=== PATIENT | male | born 1945 | race Caucasian/White ===

== ENCOUNTER → 2017-11-06 14:51 | Outpatient (CLI) | payer BC, SELFPAY ==
[2017-11-06 15:15] LABS: HCT 38.1 % (40.0-50.0); HGB 12.9 g/dL (13.5-17.5); Mean Corp. HGB Concentration 33.9 g/dL (32.0-36.0); Mean Corpuscular Hemoglobin 31.2 pg (27.0-33.0); Mean Corpuscular Volume 92.3 fL (80-95); Mean Platelet Volume 9.1 fL (8.0-11.0); Platelet Count 223 x1000/uL (130-400); RBC 4.13 m/cumm (4.50-6.00); RBC Distribution Width 14.8 % (11.8-14.1); White Blood Cell Count 3.76 k/cumm (4.4-10.8)
== END ==
PROVIDERS: PCP Nurse Practitioner Family; Visit Provider Nurse Practitioner Family
DX: Z86.2 Personal history of diseases of the blood and blood-forming organs and certain disorders involving the immune mechanism (principal)
CPT/HCPCS: 36415; 85027

== ENCOUNTER 2018-04-25 07:53 | Outpatient (CLI) | payer BC, SELFPAY ==
[2018-04-25 08:20] LABS: Absolute Basophil Count 0.02 k/cumm (0.0-0.2); Absolute Eosinophil Count 0.15 k/cumm (0.0-0.7); Absolute Lymphocyte Count 0.93 k/cumm (1.2-3.4); Absolute Monocyte Count 0.32 k/cumm (0.11-0.7); Absolute Neutrophil Count 2.23 k/cumm (1.2-6.7); Basophils % 0.5; Eosinophils % 4.1; HCT 41.6 % (40.0-50.0); HGB 14.3 g/dL (13.5-17.5); Lymphocytes % 25.5; Mean Corp. HGB Concentration 34.4 g/dL (32.0-36.0); Mean Corpuscular Hemoglobin 31.5 pg (27.0-33.0); Mean Corpuscular Volume 91.6 fL (80-95); Mean Platelet Volume 9.4 fL (8.0-11.0); Monocytes % 8.8; Neutrophils % 61.1; Platelet Count 249 x1000/uL (130-400); RBC 4.54 m/cumm (4.50-6.00); RBC Distribution Width 13.9 % (11.8-14.1); White Blood Cell Count 3.65 k/cumm (4.4-10.8)
[2018-04-25 08:25] LABS: INR 3.3 (0.9-1.1); Prothrombin Time 33.2 sec (9.3-11.0)
[2018-04-25 10:24] LABS: Iron 83 ug/dL (50-175); Total Iron Binding Capacity 322 ug/dL (250-450); Transferrin Sat 26 % (20-55)
[2018-04-25 11:05] LABS: ALT 34 U/L (12-78); AST 30 U/L (15-37); Albumin 3.9 g/dL (3.4-5.0); Alkaline Phosphatase 74 U/L (46-116); Anion Gap 7.7 mmol/L (3-11); BUN 18 mg/dL (7-18); Bilirubin, Total 0.8 mg/dL (0.2-1.0); CO2 30.3 mmol/L (21.0-32.0); CREATININE 1.18 mg/dL (0.70-1.30); Calcium 9.1 mg/dL (8.5-10.1); Chloride 103 mmol/L (98-107); Cholesterol 193 mg/dL (50-200); Ferritin 100 ng/mL (8-388); Folate 19.7 ng/mL (8.6-20.0); Glucose 87 mg/dL (70-100); HDL Cholesterol 88 mg/dL (40-60); LDL CHOLESTEROL 93 mg/dL (<100); Potassium 4.6 mmol/L (3.5-5.1); Sodium 141 mmol/L (136-145); Total Protein 7.1 g/dL (6.4-8.2); Triglyceride 43 mg/dL (30-150); Vitamin B12 841 pg/mL (193-986)
[2018-04-28 12:08] LABS: Hepatitis C Ab w Rflx HCV PCR Negative (NEGAT)
== END 2018-04-25 08:13 ==
PROVIDERS: PCP Nurse Practitioner Family; Visit Provider Nurse Practitioner Family
DX: D50.0 Iron deficiency anemia secondary to blood loss (chronic) (principal); E78.5 Hyperlipidemia, unspecified; Z13.1 Encounter for screening for diabetes mellitus; Z11.59 Encounter for screening for other viral diseases; Z95.2 Presence of prosthetic heart valve; Z79.01 Long term (current) use of anticoagulants
CPT/HCPCS: 36415; 80053; 80061; 83721; 86803; 82607; 82728; 82746; 83540; 83550; 85025; 85610

== ENCOUNTER 2019-04-17 22:12 | Emergency (ER) | payer BC, SELFPAY ==
[2019-04-17 22:14] VITALS: BP 150/80; PULSE 60; RESP 16; TEMP 36.4; O2SAT 98
[2019-04-17 22:18] VITALS: RESP 16
[2019-04-17] MEDS: Tranexamic Acid 1,000 MG/10 ML VIAL 1000 MG (22:33)
--- NOTE | 2019-04-17 22:33 | ED.GENADUL_ITS ---
Discharge Plan Disposition Patient Disposition: HOME Condition: Good Discharge Details Chief Complaint: GenMedical Clinical Impression: Bleeding, Hemorrhage of tongue Primary Care Provider: Asha Khoury ED Provider: Parminder Dia Home Meds and New Rx's Prescriptions: No Action warfarin 5 mg tablet 5 mg PO .COMPLEX Qty: 180 RF: 3 Shingrix (PF) 50 mcg/0.5 mL suspension for reconstitution 50 mcg IM .COMPLEX Qty: 1 RF: 1 finasteride 5 mg tablet 5 mg PO DAILY Qty: 90 RF: 3 acetaminophen 650 MG tablet 1,300 mg PO BID RF: 0 cyanocobalamin (vitamin B-12) 2,500 MCG tablet 1,000 mcg PO DAILY Qty: 90 RF: 11 amoxicillin 500 MG tablet 2 g PO ONCE Qty: 4 RF: 6 amoxicillin 500 MG tablet 0 PO as directed Qty: 8 RF: 3 tadalafil [Cialis] 2.5 mg tablet 2.5 mg PO DAILY Qty: 90 RF: 3 simvastatin 10 mg tablet 10 mg PO DAILY Qty: 90 RF: 3 tamsulosin 0.4 mg capsule 0.8 mg PO DAILY Qty: 180 RF: 3 warfarin 4 mg tablet 4 mg PO DAILY Qty: 90 RF: 3 Discharge Instructions Additional Instructions: The small cut on your tongue has resolved. 2 simple interrupted sutures were placed which are made from Chromic Gut which will fall out on their own. If you have any repeat bleeding return immediately. Continue to apply pressure for the next 30+ minutes. If you notice any worsening of your symptoms, or any new symptoms such as vomiting, diarrhea, fever, chills, shortness of breath, chest pain, numbness, weakness, or fainting , please return immediately to the emergency department for reevaluation. Please follow up with your primary care provider as soon as possible for reassessment and reevaluation. As always, it was a pleasure participating in your medical care today. Referrals: Asha Khoury NP [Primary Care Provider] - Medical Decision Making This is a pleasant 73-year-old male on Coumadin for valve replacement, who presents for bleeding of his tongue. Earlier tonight he accidentally bit his tongue with a superficial cup. He has been using salt and nitrate but has had no resolution of the bleeding for the last hour. He denies significant pain. He has come to get the bleeding stopped. Physical exam demonstrates a small superficial laceration to the top of the tongue. No other evidence of abnormality. Vital signs are otherwise stable. We will apply TXA, and pressure and reassess. If he has no improvement with this he may require 1-2 small sutures. 10:52 PM Unfortunately topical TXA had no effect. The tongue was numbed with 3 cc of 2% lidocaine with epinephrine, as well as a small amount of TXA mixed with it. Bleeding improved but did not resolve, 2 [id number] sutures were placed and this completely resolved the bleeding. Patient tolerated this well. No repeat bleeding. Patient will be discharged home. Sutures were from Chromic Gut will come out on their own. Discussed red flags which to return. I have extensively reviewed the treatment plan and discharge instructions with the patient. I have addressed all patient concerns at this time. The patient was made aware of what symptoms to monitor for that would warrant a return to the emergency department. Discussed the plan with the patient, they demonstrate verbal understanding and agreement with our assessment and plan at this time. HPI General Date/Time Provider Initiated Documentation: 04/17/19 22:24 . HPI Narrative: 73-year-old male with a past medical history of cardiac valve replacement for which she is on Coumadin presents today for tongue bleeding. The patient states that accidentally bit the top aspect of his tongue earlier tonight and has not been able to stop the bleeding. His use salt, nitro, but has had no resolution of his symptoms with this. He denies lightheadedness or pain. The bite was notably superficial but the bleeding is just continued to ooze. The patient did just have his INR checked yesterday and it was 2.9. Patient has no other complaints at this time. No other modifying factors. Related Data Home Medications Medication Instructions Recorded Confirmed acetaminophen 1,300 mg PO BID 07/01/12 04/17/19 cyanocobalamin (vitamin B-12) 1,000 mcg PO DAILY #90 tab-cap 05/26/15 04/17/19 amoxicillin 2 g PO ONCE #4 tab-cap 10/08/17 04/17/19 amoxicillin 0 PO as directed #8 tab-cap 10/17/17 08/08/18 tadalafil 2.5 mg tablet 2.5 mg PO DAILY #90 tab-cap 03/19/18 04/17/19 varicella-zoster gE-AS01B (PF) 50 50 mcg IM .COMPLEX #1 each 04/18/18 04/17/19 mcg/0.5 mL IM susp, kit warfarin 5 mg tablet 5 mg PO .COMPLEX #180 tab-cap 04/18/18 04/17/19 simvastatin 10 mg tablet 10 mg PO DAILY #90 tab-cap 05/28/18 04/17/19 finasteride 5 mg tablet 5 mg PO DAILY #90 tab 08/08/18 04/17/19 tamsulosin 0.4 mg capsule 0.8 mg PO DAILY #180 tab-cap 10/13/18 04/17/19 warfarin 4 mg tablet 4 mg PO DAILY #90 tab-cap 03/11/19 04/17/19 Previous Rx's Medication Instructions Recorded amoxicillin 2 g PO ONCE #4 tab-cap 10/08/17 tadalafil 2.5 mg tablet 2.5 mg PO DAILY #90 tab-cap 03/19/18 varicella-zoster gE-AS01B (PF) 50 50 mcg IM .COMPLEX #1 each 04/18/18 mcg/0.5 mL IM susp, kit warfarin 5 mg tablet 5 mg PO .COMPLEX #180 tab-cap 04/18/18 simvastatin 10 mg tablet 10 mg PO DAILY #90 tab-cap 05/28/18 finasteride 5 mg tablet 5 mg PO DAILY #90 tab 08/08/18 tamsulosin 0.4 mg capsule 0.8 mg PO DAILY #180 tab-cap 10/13/18 warfarin 4 mg tablet 4 mg PO DAILY #90 tab-cap 03/11/19 Allergies Allergy/AdvReac Type Severity Reaction Status Date / Time phenytoin Allergy Severe Rash, Unverified 08/08/18 13:56 elevated glucose General Stated Complaint: GenMedical CHINO: 3 Review of Systems All systems reviewed & are unremarkable except as noted in HPI and below [facility] Medical History (Updated 04/28/18 @ 14:54 by Asha Khoury NP) B12 deficiency (Chronic 05/26/15) BPH (benign prostatic hyperplasia) BPH w urinary obs/LUTS (Chronic 07/03/12) Chronic anticoagulation Chronic pain of left knee (Chronic 02/24/16) Chronic rhinitis (Chronic 07/03/12) Chronic serous otitis media, right ear (Chronic 02/21/17) 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 H90.A11 Sensorineural Hearing loss, bilateral-H90.3 Gastrointestinal bleed (Inactive 07/13/15) Negative EGD [facility] 06/10/2015; neg colonoscopy 07/08/2015 [facility]; capsule endoscopy [facility] 08/19/15 AVMs of small bowel and cecum Repeat GI bleed 2015 and again 2017 s/p hemorrhoidectomy 04/2017 Generalized osteoarthritis Generalized osteoarthrosis (Chronic 07/16/11) p LTKA [facility] '06 History of atrial fibrillation History of atrial fibrillation (Resolved 07/16/11) Hyperlipidemia Hyperlipidemia (Chronic 07/16/11) 04/2018 labs: 10-year ASCVD risk = 15.1% -- consider statin Iron deficiency anemia due to chronic blood loss (Chronic 05/26/15) NL iron studies 02/2016 Irritable bowel syndrome with diarrhea (Chronic 07/16/11) Lichen planus (Chronic 07/16/11) 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 Brandt]) Low back pain Low back pain without sciatica (Chronic 07/16/11) 01/04/16 CT LS spine: DJD, spinal stenosis L4-5, multi level foraminal stenosis [facility] Mechanical heart valve present Aortic & mitral Mitral and aortic heart valve diseases, unspecified (Chronic 07/16/11) AVR/MVR mechanical ST jUDES 08/2004 FOR ENDOCARDITIS [facility] DR CHAVEZ; echo 04/24/16 [facility] EF 60% Obstructive sleep apnea (Chronic 08/25/12) moderate, oral appliance (did not tolerate CPAP), Dr. 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 3.ENT: Atraumatic external nose and ears. Moist MM. Neck: Symmetric, trachea midline, No thyromegaly. Tongue demonstrates a very superficial laceration to the superior palatal side. Mild active oozing of blood. No deep laceration. No other evidence of abnormality. 4.CVS: +S1/S2, No murmurs or gallops. Peripheral pulses 2+ and equal in all extremities. Brisk capillary refill in all extremities. 5.RESP: Unlabored respiratory effort. Clear to auscultation bilaterally. No wheezes rales or rhonchi 6.GI: Soft, Nontender/Nondistended, No hepatosplenomegaly. No guarding or rebound. 7.MSK: Normocephalic/Atraumatic, Extremities w/o deformity or ttp No cyanosis or clubbing, Normal movement of all extremities 8.Skin: Warm, Dry. No rashes or lesions. 9.Neuro: patient safety sitter II-XII grossly intact. Sensation grossly intact, no focal neurologic deficits. 10.Psych: (AAO) x3. Appropriate mood and affect Course Vital Signs Vital signs: Vital Signs Temperature 36.4 C L 04/17/19 22:14 Pulse 60 04/17/19 22:14 Respiratory Rate 16 04/17/19 22:14 Blood Pressure 150/80 H 04/17/19 22:14 Pulse Oximetry 98 04/17/19 22:14 Temperature 36.4 C L 04/17/19 22:14 Temperature Source Skin 04/17/19 22:14 Pulse 60 04/17/19 22:14 Respiratory Rate 16 04/17/19 22:18 Respiratory Effort 04/17/19 22:18 Respiratory Depth Normal 04/17/19 22:18 Respiratory Pattern Normal 04/17/19 22:18 Blood Pressure 150/80 H 04/17/19 22:14 Blood Pressure Position Sitting 04/17/19 22:14 Pulse Oximetry 98 04/17/19 22:14 Oxygen Delivery Method Room Air 04/17/19 22:14 Oxygen Flow Rate 0 04/17/19 22:14 Pain Level 0 04/17/19 22:14
--- NOTE | 2019-04-17 22:33 | NUR.NOTE ---
[place] in to eval pt. Lido with epi applied to tongue, continued to bleed. TXA to gauze pads, clamped to tongue with nose clip.
--- NOTE | 2019-04-17 23:03 | NUR.NOTE ---
Tongue sutured by MD Dia. No further bleeding. Gauze applied, pt instructed to keep pressure x 30 min.
== END 2019-04-17 23:05 | disposition home or self-care (01) ==
PROVIDERS: Emergency Provider Student in an Organized Health Care Education/Training Program; PCP Nurse Practitioner Family
DX: S01.512A Laceration without foreign body of oral cavity, initial encounter (principal); W20.8XXA Other cause of strike by thrown, projected or falling object, initial encounter; Z79.01 Long term (current) use of anticoagulants; Z95.2 Presence of prosthetic heart valve
CPT/HCPCS: 12011

== ENCOUNTER 2019-09-10 13:58 | Outpatient (REF) | payer BC, SELFPAY ==
[2019-09-10 19:10] LABS: Abs Immature Grans 0.01 k/cumm (0.0-0.09); Absolute Basophil Count 0.01 k/cumm (0.0-0.2); Absolute Eosinophil Count 0.14 k/cumm (0.0-0.7); Absolute Lymphocyte Count 0.87 k/cumm (1.2-3.4); Absolute Monocyte Count 0.43 k/cumm (0.11-0.7); Absolute Neutrophil Count 3.97 k/cumm (1.2-6.7); Basophils % 0.2; Eosinophils % 2.6; HCT 38.8 % (40.0-50.0); HGB 13.3 g/dL (13.5-17.5); Immature Grans % 0.2 %; Mean Corp. HGB Concentration 34.3 g/dL (32.0-36.0); Mean Corpuscular Volume 93.3 fL (80-95); Mean Platelet Volume 10.1 fL (8.0-11.0); Monocytes % 7.9; Neutrophils % 73.1; Platelet Count 283 x1000/uL (130-400); RBC 4.16 m/cumm (4.50-6.00); RBC Distribution Width 13.9 % (11.8-14.1); White Blood Cell Count 5.43 k/cumm (4.4-10.8)
[2019-09-10 19:19] LABS: ALT 34 U/L (16-63); AST 25 U/L (15-37); Albumin 3.9 g/dL (3.4-5.0); Alkaline Phosphatase 62 U/L (46-116); Anion Gap 8.4 mmol/L (3-11); BUN 19 mg/dL (7-18); Bilirubin, Total 0.7 mg/dL (0.2-1.0); CO2 27.6 mmol/L (21.0-32.0); CREATININE 1.18 mg/dL (0.70-1.30); Calcium 8.9 mg/dL (8.5-10.1); Calculated LDL 72 mg/dL (<100); Chloride 105 mmol/L (98-107); Cholesterol 199 mg/dL (<200); Glucose 119 mg/dL (74-106); HDL Cholesterol 75 mg/dL (40-60); Sodium 141 mmol/L (136-145); Total Protein 6.7 g/dL (6.4-8.2); Triglyceride 261 mg/dL (<150)
[2019-09-14 11:16] LABS: PSA, Screening 1.6 ng/mL (0.0-6.5)
== END 2019-09-10 14:18 ==
LOC: LBN 13:58
PROVIDERS: PCP Nurse Practitioner Family; Visit Provider Nurse Practitioner Family
DX: N13.8 Other obstructive and reflux uropathy (principal); N40.1 Benign prostatic hyperplasia with lower urinary tract symptoms; E78.5 Hyperlipidemia, unspecified; Z12.5 Encounter for screening for malignant neoplasm of prostate
CPT/HCPCS: 80053; 80061; 84153; 85025

== ENCOUNTER 2019-12-30 08:38 | Outpatient (CLI) | payer BC, SELFPAY ==
--- NOTE | 2019-12-30 06:40 | DI.US_ITS ---
EXAM: US AAA SCREENING CLINICAL HISTORY: screening FOR AAA,Z13.6 COMPARISON: CT ABD PELVIS WITH CONTRAST from 06/27/2017 FINDINGS: Abdominal Aorta: Proximal: 2.3 x 2.8 cm Mid: 1.9 x 2.2 cm Distal: 1.8 x 2.3 cm Iliac's: Right: 1.4 x 1.3 cm Left: 1.2 x 1.1 cm Mild atherosclerotic disease is seen. IMPRESSION: No evidence of abdominal aortic aneurysm. DATA REPOSITORY:
== END 2019-12-30 08:58 ==
PROVIDERS: PCP Nurse Practitioner Family; Visit Provider Nurse Practitioner Family
DX: Z13.6 Encounter for screening for cardiovascular disorders (principal)
CPT/HCPCS: 76706

== ENCOUNTER 2020-03-16 01:22 | Outpatient (CLI) | payer BC, SELFPAY ==
--- NOTE | 2020-03-16 09:57 | DI.RAD_ITS ---
EXAM: XR WRIST RT COMPLETE CLINICAL HISTORY: OA vs. other?,RT WRIST PAIN,M25.531 TECHNIQUE: COMPARISON: No exams were available for comparison FINDINGS: Three views were obtained. Carpal alignment appears grossly intact. There is marked narrowing of th e cartilaginous joint space at the greater multangular 1st metacarpal joint with very prominent rosa nal osteophytes and possible loose ossific densities associated with this joint. There is mild subch ondral sclerosis of the adjacent bones at this joint. Note is also made of degenerative change at the radioulnar joint, with joint space narrowing and asso ciated hypertrophic changes. Small ossific density adjacent to the tip of the ulnar styloid may repr esent an old fracture or accessory ossicle. Nonspecific calcifications are seen adjacent to the dist al ulna which may be dystrophic. IMPRESSION: Degenerative changes as described above, most marked involving greater multangular 1st metacarpal kyle nt. RADIATION DOSE DELIVERED: Total DLP
== END 2020-03-16 01:42 ==
PROVIDERS: PCP Nurse Practitioner Family; Visit Provider Nurse Practitioner Family
DX: M19.031 Primary osteoarthritis, right wrist (principal); M18.11 Unilateral primary osteoarthritis of first carpometacarpal joint, right hand
CPT/HCPCS: 73110

== ENCOUNTER 2021-02-17 15:10 | Outpatient (REF) | payer BC, SELFPAY ==
[2021-02-19 23:03] LABS: Campylobacter PCR Negative (Negative); Salmonella PCR Negative (Negative); Shiga Toxin PCR Negative (Negative); Shigella/Enteroinvasive Ecoli Negative (Negative)
== END 2021-02-17 15:11 | disposition home or self-care (01) ==
LOC: LBN 15:10
PROVIDERS: PCP Nurse Practitioner Family; Visit Provider Nurse Practitioner Family
DX: K52.9 Noninfective gastroenteritis and colitis, unspecified (principal); R19.7 Diarrhea, unspecified
CPT/HCPCS: 87505; 83630

== ENCOUNTER 2021-02-22 03:23 | Outpatient (CLI) | payer BC, SELFPAY ==
[2021-02-22 08:05] LABS: Abs Immature Grans 0.01 10^3/uL (0.0-0.06); Absolute Basophil Count 0.03 10^3/uL (0.0-0.2); Absolute Eosinophil Count 0.22 10^3/uL (0.0-0.7); Absolute Lymphocyte Count 1.23 10^3/uL (1.2-3.4); Absolute Monocyte Count 0.37 10^3/uL (0.1-0.8); Absolute Neutrophil Count 2.35 10^3/uL (1.2-6.7); Basophils % 0.7; Eosinophils % 5.2; HCT 40.8 % (40.0-50.0); HGB 13.5 g/dL (13.5-17.5); Immature Grans % 0.2; Lymphocytes % 29.2; MCH 29.9 pg (27.0-33.0); MCHC 33.1 % (32.0-36.0); MCV 90.5 fL (80-95); MPV 9.5 fL (8.0-11.0); Monocytes % 8.8; Neutrophils % 55.9; Nucleated RBC 0 %; Platelet Count 247 10^3/uL (130-400); RBC 4.51 10^6/uL (4.36-5.78); RDW 14.3 % (11.8-14.1); RDW-SD 47.6 fL; WBC 4.21 10^3/uL (4.4-10.8)
[2021-02-22 09:03] LABS: ALT 30 U/L (16-63); AST 19 U/L (15-37); Albumin 3.9 g/dL (3.4-5.0); Alkaline Phosphatase 63 U/L (46-116); Anion Gap 6.7 mmol/L (3-11); BUN 17 mg/dL (7-18); Bilirubin, Total 0.7 mg/dL (0.2-1.0); CO2 32.3 mmol/L (21.0-32.0); CREATININE 1.1 mg/dL (0.70-1.30); Calcium 9.1 mg/dL (8.5-10.1); Chloride 105 mmol/L (98-107); Glucose 99 mg/dL (74-106); Potassium 4.4 mmol/L (3.5-5.1); Sodium 144 mmol/L (136-145); Total Protein 6.7 g/dL (6.4-8.2)
[2021-02-27 15:05] LABS: IgA 289 mg/dL (85-499); Interpretation (See Note); Tissue Transglutaminase IgA <1.2 U/mL (<4.0)
== END 2021-02-22 03:24 | disposition home or self-care (01) ==
LOC: LBO 03:23
PROVIDERS: PCP Nurse Practitioner Family; Visit Provider Nurse Practitioner Family
DX: K52.9 Noninfective gastroenteritis and colitis, unspecified (principal)
CPT/HCPCS: 36415; 80053; 82784; 83516; 85025

== ENCOUNTER 2021-09-16 07:08 | Emergency (ER) | payer BC, SELFPAY ==
[2021-09-16 07:21] VITALS: BP 148/96; PULSE 51; RESP 16; TEMP 36.6; O2SAT 99
--- NOTE | 2021-09-16 08:15 | W.ED.GENAD ---
Discharge Plan Disposition Patient Disposition: HOME Condition: Stable Discharge Details Clinical Impression: Post-op bleeding, Open wound of lip Primary Care Provider: Asha Khoury ED Provider: Derrick Subramanian Home Meds and New Rx's Prescriptions: Continued acetaminophen 650 MG tablet 1,300 mg PO BID Rx Instructions: Tyulenol ARthritis when necessary. cyanocobalamin (vitamin B-12) 2,500 MCG tablet 1,000 mcg PO DAILY Qty: 90 amoxicillin 500 mg tablet See Rx Instructions PO .COMPLEX Qty: 8 1RF Rx Instructions: Take 2000 mg 30-60 mins prior to dental procedure, then 1000 mg daily for two days following PO; tadalafil [Cialis] 5 mg tablet 5 mg PO DAILY Qty: 90 3RF warfarin 4 mg tablet 4 mg PO DAILY Qty: 90 3RF Protocol: Dose Management Condition: Saturday Dose/Route: 7 mg Instruction: 0.5 x 4 mg tablets, 1 x 5 mg tablet Condition: Saturday Dose/Route: 7 mg Instruction: 0.5 x 4 mg tablets, 1 x 5 mg tablet Condition: Saturday Dose/Route: 7 mg Instruction: 0.5 x 4 mg tablets, 1 x 5 mg tablet Condition: Saturday Dose/Route: 7 mg Instruction: 0.5 x 4 mg tablets, 1 x 5 mg tablet Condition: Dose/Route: 9 mg Instruction: 1 x 4 mg tablet, 1 x 5 mg tablet Condition: Saturday Dose/Route: 7 mg Instruction: 0.5 x 4 mg tablets, 1 x 5 mg tablet Condition: Saturday Dose/Route: 7 mg Instruction: 0.5 x 4 mg tablets, 1 x 5 mg tablet Protocol Text: Adjustment Start Date: Saturday09/20/21 INR Value: 2.5 INR Date: 09/20/21 Recheck Date: 09/27/21 Additional Instructions: dosing/recheck reviewed w/pt-LH warfarin 5 mg tablet 5 mg PO DAILY Qty: 180 3RF Protocol: Dose Management Condition: Saturday Dose/Route: 7 mg Instruction: 0.5 x 4 mg tablets, 1 x 5 mg tablet Condition: Saturday Dose/Route: 7 mg Instruction: 0.5 x 4 mg tablets, 1 x 5 mg tablet Condition: Saturday Dose/Route: 7 mg Instruction: 0.5 x 4 mg tablets, 1 x 5 mg tablet Condition: Saturday Dose/Route: 7 mg Instruction: 0.5 x 4 mg tablets, 1 x 5 mg tablet Condition: Dose/Route: 9 mg Instruction: 1 x 4 mg tablet, 1 x 5 mg tablet Condition: Saturday Dose/Route: 7 mg Instruction: 0.5 x 4 mg tablets, 1 x 5 mg tablet Condition: Saturday Dose/Route: 7 mg Instruction: 0.5 x 4 mg tablets, 1 x 5 mg tablet Protocol Text: Adjustment Start Date: Saturday09/20/21 INR Value: 2.5 INR Date: 09/20/21 Recheck Date: 09/27/21 Additional Instructions: dosing/recheck reviewed w/pt-LH tamsulosin 0.4 mg capsule 0.8 mg PO DAILY Qty: 180 3RF simvastatin 10 mg tablet 10 mg PO DAILY Qty: 90 3RF finasteride 5 mg tablet 5 mg PO DAILY Qty: 90 3RF Metamucil (sugar) Powder See Rx Instructions PO BID Rx Instructions: 1 tsp daily x1wk, then 2 tsp daily x1 wk then 3 tsp daily up to 2 tbsp daily orally twice a day; per note dated 08/31/21 [facility] [place]astro Discharge Instructions Instructions: Care For Your Absorbable Stitches (ED) Additional Instructions: Minimize contact with wound to allow for healing. Please follow-up with your cancer program coordinator. Return to the emergency department for any worsening or new concerning symptoms. Referrals: Amari Rendon MD [ CONSULTING PHYSICIAN] - Discharge Data Discharge Date/Time-TO BE ENTERED AT DEPARTURE: 09/16/21 08:57 Medical Decision Making 75-year-old male had venous full lesion excised from his lower lip yesterday, on Coumadin, now with bleeding from surgical wounds earlier this morning. TXA soaked gauze was applied to wound which did not resolve bleeding on reassessment. Local injection of lidocaine with epinephrine 1 mL was administered and wound was closed with #1 Monocryl 5-0 suture. Thin layer of skin adhesive applied to provide support. Hemostasis was achieved. No complications. HPI General Date/Time Provider Initiated Documentation: 09/16/21 07:36. Related Data Home Medications Medication Instructions Recorded Confirmed acetaminophen 650 mg tablet 1,300 mg PO BID 07/01/12 09/16/21 cyanocobalamin (vitamin B-12) 1,000 mcg PO DAILY #90 tab-caps 05/26/15 09/16/21 2,500 mcg tablet amoxicillin 500 mg tablet See Rx Instructions PO .COMPLEX #8 10/06/20 09/16/21 tab-caps tadalafil 5 mg tablet (Cialis) 5 mg PO DAILY #90 tabs 10/06/20 09/16/21 warfarin 4 mg tablet 4 mg PO DAILY #90 tab-caps 10/06/20 09/16/21 warfarin 5 mg tablet 5 mg PO DAILY #180 tab-caps 10/06/20 09/16/21 simvastatin 10 mg tablet 10 mg PO DAILY #90 tab-caps 07/19/21 09/16/21 tamsulosin 0.4 mg capsule 0.8 mg PO DAILY #180 tab-caps 07/19/21 09/16/21 finasteride 5 mg tablet 5 mg PO DAILY #90 tab-caps 07/20/21 09/16/21 psyllium seed (sugar) oral powder See Rx Instructions PO BID 09/06/21 09/16/21 (Metamucil (sugar) oral powder) Previous Rx's Medication Instructions Recorded amoxicillin 500 mg tablet See Rx Instructions PO .COMPLEX #8 10/06/20 tab-caps tadalafil 5 mg tablet (Cialis) 5 mg PO DAILY #90 tabs 10/06/20 warfarin 4 mg tablet 4 mg PO DAILY #90 tab-caps 10/06/20 warfarin 5 mg tablet 5 mg PO DAILY #180 tab-caps 10/06/20 simvastatin 10 mg tablet 10 mg PO DAILY #90 tab-caps 07/19/21 tamsulosin 0.4 mg capsule 0.8 mg PO DAILY #180 tab-caps 07/19/21 finasteride 5 mg tablet 5 mg PO DAILY #90 tab-caps 07/20/21 Allergies Allergy/AdvReac Type Severity Reaction Status Date / Time phenytoin Allergy Severe Rash, Verified 09/16/21 07:25 elevated glucose General Stated Complaint: RashLesion CHINO: 4 PFSH All Active Problems (Updated 09/16/21 @ 08:39 by Derrick Subramanian MD) Post-op bleeding (Acute) Open wound of lip (Acute) Chronic diarrhea (Acute) COLTON (obstructive sleep apnea) (Chronic) Moderate, oral appliance (did not tolerate CPAP), Dr. 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 Brandt]) Lichen planus (Chronic 07/16/11) Irritable bowel syndrome with diarrhea (Chronic 07/16/11) Iron deficiency anemia due to chronic blood loss (Chronic 05/26/15) NL iron studies 02/2016 Hyperlipidemia (Chronic 07/16/11) 04/2018 labs: 10-year ASCVD risk = 15.1% -- consider statin Generalized osteoarthrosis (Chronic 07/16/11) p LTKA [facility] '06 Erectile dysfunction (Chronic 12/11/13) Eustachian tube dysfunction (Chronic 12/06/16) conductive hearing loss of right ear with restricted hearing of left ear. H90.A11 Sensorineural Hearing loss, bilateral-H90.3 Chronic serous otitis media, right ear (Chronic 02/21/17) Chronic pain of left knee (Chronic 02/24/16) Chronic rhinitis (Chronic 07/03/12) BPH w urinary obs/LUTS (Chronic 07/03/12) B12 deficiency (Chronic 05/26/15) Medical History (Updated 09/16/21 @ 08:39 by Derrick Subramanian MD) Dilated aortic root Endocarditis Initial reason for AVR/MVR and recurrent prosthetic valve endocarditis Gastrointestinal bleed (07/13/15) Negative EGD [facility] 06/10/2015; neg colonoscopy 07/08/2015 [facility]; capsule endoscopy [facility] [place] 08/19/15 AVMs of small bowel and cecum Repeat GI bleed 2015 and again 2017 s/p hemorrhoidectomy 04/2017 Generalized osteoarthritis History of atrial fibrillation Low back pain without sciatica (07/16/11) 01/04/16 CT LS spine: DJD, spinal stenosis L4-5, multi level foraminal stenosis; [facility] Mitral and aortic heart valve diseases, unspecified (07/16/11) S/p AVR/MVR mechanical ST JUDES 08/2004 FOR ENDOCARDITIS [facility] [place] CHAVEZ; echo 04/24/16 [facility] [place] EF 60% Surgical History Colonoscopy - MAC (01/30/13) Hyperplastic polyp EGD - IV Sedation Hemorrhoidectomy (04/23/17) left total knee revision,poly exchange, patellar resurfacing (07/22/12) Dr. Gonzalez 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 Pets and animals: Yes Pets and animals: cat(s) Sexually active: Yes Current gender identity: male What type of physical activity do you participate in: bicycling and regular exercise Frequency: 3-4 times per week Seatbelt use: always Helmet use: Yes Drive intox or ride w/intox corrugated fastener driver: No Do you feel safe at home: Yes Do you feel safe in your relationship?: Yes Course Vital Signs Vital signs: Vital Signs Temperature 36.6 C 09/16/21 07:21 Pulse 51 L 09/16/21 07:21 Respiratory Rate 16 09/16/21 07:21 Blood Pressure 148/96 H 09/16/21 07:21 Pulse Oximetry 99 09/16/21 07:21 Temperature 36.6 C 09/16/21 07:21 Temperature Source Temporal Artery Scan 09/16/21 07:21 Pulse 51 L 09/16/21 07:21 Respiratory Rate 16 09/16/21 07:21 Blood Pressure 148/96 H 09/16/21 07:21 Blood Pressure Position Sitting 09/16/21 07:21 Pulse Oximetry 99 09/16/21 07:21 Oxygen Delivery Method Room Air 09/16/21 07:21 Oxygen Flow Rate 0 09/16/21 07:21 Pain Level 0 09/16/21 07:21 Procedures Laceration Laceration 1: Site: lip Size (cm): 0.5 Description: linear Depth: simple, single layer Local Anesthetic: Lidocaine 1% Amount of anesthesia used (mL): 1 Size (cm): 5-0 Number of sutures: 1 Technique: simple, interrupted Subcutaneous layer closed with: other (monocryl)
[2021-09-16] MEDS: Tranexamic Acid 650 MG TAB PO (08:22)
[2021-09-16 08:36] LABS: INR 3.6 (0.9-1.1); Prothrombin Time 33.7 sec (9.3-11.0)
[2021-09-16] MEDS: Lidocaine 1% Multi-Dose W/EPI 1/100,000 50 ML VIAL (08:48)
[2021-09-16 08:55] VITALS: BP 128/76; PULSE 72; RESP 16; O2SAT 99
== END 2021-09-16 08:57 | disposition home or self-care (01) ==
PROVIDERS: Emergency Provider Student in an Organized Health Care Education/Training Program; PCP Nurse Practitioner Family
DX: L76.21 Postprocedural hemorrhage of skin and subcutaneous tissue following a dermatologic procedure (principal); Z79.01 Long term (current) use of anticoagulants
CPT/HCPCS: 12011; 36415; 85610

== ENCOUNTER 2022-06-14 03:05 | Outpatient (CLI) | payer BC, SELFPAY ==
[2022-06-14 08:07] LABS: Abs Immature Grans 0.01 10^3/uL (0.0-0.06); Absolute Basophil Count 0.03 10^3/uL (0.0-0.2); Absolute Eosinophil Count 0.19 10^3/uL (0.0-0.7); Absolute Lymphocyte Count 1.13 10^3/uL (1.2-3.4); Absolute Monocyte Count 0.42 10^3/uL (0.1-0.8); Absolute Neutrophil Count 2.18 10^3/uL (1.2-6.7); Basophils % 0.8; Eosinophils % 4.8; HCT 40.5 % (40.0-50.0); HGB 13.4 g/dL (13.5-17.5); Immature Grans % 0.3; Lymphocytes % 28.5; MCH 30.4 pg (27.0-33.0); MCHC 33.1 % (32.0-36.0); MCV 92 fL (80-95); MPV 8.9 fL (8.0-11.0); Monocytes % 10.6; Platelet Count 233 10^3/uL (130-400); RBC 4.41 10^6/uL (4.36-5.78); RDW 13.8 % (11.8-14.1); RDW-SD 46.9 fL; WBC 3.97 10^3/uL (4.4-10.8)
[2022-06-14 08:52] LABS: ALT 30 U/L (16-63); AST 18 U/L (15-37); Albumin 3.8 g/dL (3.4-5.0); Alkaline Phosphatase 66 U/L (46-116); Anion Gap 6.2 mmol/L (3-11); BUN 16 mg/dL (7-18); Bilirubin, Total 0.8 mg/dL (0.2-1.0); CO2 30.8 mmol/L (21.0-32.0); CREATININE 1.1 mg/dL (0.70-1.30); Calculated LDL 81 mg/dL (<100); Chloride 104 mmol/L (98-107); Cholesterol 183 mg/dL (<200); Estimated GFR 69.14 (mL/min/1.73m2); Glucose 99 mg/dL (74-106); HDL Cholesterol 89 mg/dL (40-60); Potassium 4.2 mmol/L (3.5-5.1); Sodium 141 mmol/L (136-145); Total Protein 6.8 g/dL (6.4-8.2); Triglyceride 69 mg/dL (<150)
== END 2022-06-14 03:06 | disposition home or self-care (01) ==
LOC: LBO 03:05
PROVIDERS: PCP Nurse Practitioner Family; Referring Provider Nurse Practitioner Family; Visit Provider Nurse Practitioner Family
DX: E78.5 Hyperlipidemia, unspecified (principal); K52.9 Noninfective gastroenteritis and colitis, unspecified; N40.1 Benign prostatic hyperplasia with lower urinary tract symptoms; Z95.2 Presence of prosthetic heart valve; Z79.01 Long term (current) use of anticoagulants; R35.0 Frequency of micturition
CPT/HCPCS: 36415; 80053; 80061; 85025; 87086

== ENCOUNTER 2022-08-20 22:47 | Emergency (ER) | payer BC, SELFPAY ==
[2022-08-20 22:50] VITALS: BP 171/83; PULSE 66; RESP 16; TEMP 36.6; O2SAT 99
--- NOTE | 2022-08-20 23:03 | W.ED.GENAD ---
Discharge Plan Discharge Details Chief Complaint: Urinary Clinical Impression: Normocytic anemia, Clot hematuria, Acute urinary retention Primary Care Provider: Asha Khoury ED Provider: Serafin Guzman [place] Meds and New Rx's Prescriptions: No Action Benefiber Sugar Free (dextrin) 3 gram/3.8 gram powder See Rx Instructions PO BID Rx Instructions: 1 teaspoon mixed in 8 oz fluid. Increase by one teaspoon per day every week as tolerated up to 2 Tbs per day. If this makes symptoms worse, stop. loperamide [Imodium A-D] 2 mg tablet 2 - 4 mg PO QID MDD 16 mg PRN (Reason: loose stool) Qty: 360 0RF acetaminophen 650 MG tablet 1,300 mg PO BID Rx Instructions: Tyulenol ARthritis when necessary. cyanocobalamin (vitamin B-12) 2,500 MCG tablet 1,000 mcg PO DAILY Qty: 90 warfarin 4 mg tablet See Rx Instructions .ROUTE .COMPLEX Qty: 59 3RF Protocol: Dose Management Condition: Saturday Dose/Route: 7 mg Instruction: 0.5 x 4 mg tablets, 1 x 5 mg tablet Condition: Saturday Dose/Route: 5 mg Instruction: 1 x 5 mg tablet Condition: Saturday Dose/Route: 7 mg Instruction: 0.5 x 4 mg tablets, 1 x 5 mg tablet Condition: Saturday Dose/Route: 7 mg Instruction: 0.5 x 4 mg tablets, 1 x 5 mg tablet Condition: Dose/Route: 7 mg Instruction: 0.5 x 4 mg tablets, 1 x 5 mg tablet Condition: Saturday Dose/Route: 5 mg Instruction: 1 x 5 mg tablet Condition: Saturday Dose/Route: 7 mg Instruction: 0.5 x 4 mg tablets, 1 x 5 mg tablet Protocol Text: Adjustment Start Date: Saturday08/15/22 INR Value: 3.5 INR Date: 08/15/22 Recheck Date: 08/22/22 Additional Instructions: per CE, Continue current dose, recheck 1 wk. pt notified. NC Dose Instruction: TAKE 0.5 TABLET BY MOUTH WITH 5 MG TAB 5 DAYS A WEEK FOR 7MG DOSE AND 1 TABLET WITH 5 MG TAB 2 DAYS A WEEK FOR 9 MG DOSE DIRECTED Rx Instructions: TAKE 0.5 TABLET BY MOUTH WITH 5 MG TAB 5 DAYS A WEEK FOR 7MG DOSE AND 1 TABLET WITH 5 MG TAB 2 DAYS A WEEK FOR 9 MG DOSE DIRECTED warfarin 5 mg tablet See Rx Instructions .ROUTE .COMPLEX Qty: 90 3RF Protocol: Dose Management Condition: Saturday Dose/Route: 7 mg Instruction: 0.5 x 4 mg tablets, 1 x 5 mg tablet Condition: Saturday Dose/Route: 5 mg Instruction: 1 x 5 mg tablet Condition: Saturday Dose/Route: 7 mg Instruction: 0.5 x 4 mg tablets, 1 x 5 mg tablet Condition: Saturday Dose/Route: 7 mg Instruction: 0.5 x 4 mg tablets, 1 x 5 mg tablet Condition: Dose/Route: 7 mg Instruction: 0.5 x 4 mg tablets, 1 x 5 mg tablet Condition: Saturday Dose/Route: 5 mg Instruction: 1 x 5 mg tablet Condition: Saturday Dose/Route: 7 mg Instruction: 0.5 x 4 mg tablets, 1 x 5 mg tablet Protocol Text: Adjustment Start Date: Saturday08/15/22 INR Value: 3.5 INR Date: 08/15/22 Recheck Date: 08/22/22 Additional Instructions: per CE, Continue current dose, recheck 1 wk. pt notified. NC Dose Instruction: TAKE ONE 5 MG TABLET BY MOUTH DAILY WITH 4 MG TABLETS DIRECTED, TAKES 7 MG 5 DAYS A WEEK AND 9 MG 2 DAYS A WEEK Rx Instructions: TAKE ONE 5 MG TABLET BY MOUTH DAILY WITH 4 MG TABLETS DIRECTED, TAKES 7 MG 5 DAYS A WEEK AND 9 MG 2 DAYS A WEEK amoxicillin 500 mg tablet See Rx Instructions PO .COMPLEX Qty: 8 1RF Rx Instructions: Take 2000 mg 30-60 mins prior to dental procedure, then 1000 mg daily for two days following PO; finasteride 5 mg tablet 5 mg PO DAILY Qty: 90 3RF simvastatin 10 mg tablet 10 mg PO DAILY Qty: 90 3RF Medical Decision Making This is an overall well-appearing normothermic and not tachycardic 76-year-old male 3 weeks status post TURP with acute urinary retention concerning for UTI versus procedural complication versus supratherapeutic INR. Russo catheter has been inserted and the patient has been passing danyel blood. Will ensure that he is not supratherapeutic on his INR and ensure that he is not become markedly anemic. We will also ensure that he does not have a urinary tract infection. He reports that he is in a monogamous relationship and has never had a sexually transmitted infection making my suspicion for STI exceedingly low. He is also not having any pain in his penis and is circumcised so doubt balanitis. We will touch base with [facility] urology after labs. He reports that he has 2 mechanical valves and that his INR goal is 2.5 up to 3.5. Given markedly improved abdominal pain status post Russo I am not concerned for any intra-abdominal process. Specifically no right lower quadrant tenderness to suggest appendicitis. No nausea nor vomiting to suggest pancreatitis. No right upper quadrant tenderness to suggest acute cholecystitis. 11:18 PM CBC with mild normocytic anemia. No thrombocytopenia. Normocytic anemia new compared to prior. Urinalysis significant for blood but nitrite and leukoesterase negative. INR therapeutic at 3.3. 11:45 PM Basic metabolic panel with no BETTYE but mildly elevated BUN at 28. We will reach out to [facility] urology to arrange for follow-up. 11:55 PM I spoke to Dr. Baker from urology who accepted the patient in transfer as he was concerned for clot retention secondary to a postop complication. His urinalysis reflex to culture given nitrite negative will observe off of antibiotics. 1:15 AM We will send patient to [facility] via basic EMT crew. I redosed him 0.5 mg of hydromorphone prior to transfer. His Russo catheter was still draining bloody urine. Chronic conditions affecting the care of the patient: I anticoagulation with warfarin NR History obtained from an outside historian: N/A External record review: [facility] EMR Medications: N/A Social determinants of health affecting disposition: N/A Management discussed with: Urology at [facility] Treatment/interventions considered: Hospitalization Response to therapies provided: Improved pain following Russo HPI General Date/Time Provider Initiated Documentation: 08/20/22 23:02. HPI Narrative: This is a circumcised 76-year-old male who is 3 weeks status post TURP now with acute urinary retention. Patient reports that he has been urinating pink urine since his procedure. He says that he has had urinary frequency and been urinating every 15 minutes since his procedure. Today his urine began to clear and he felt that his symptoms were improving. Subsequently this evening, he felt something blast out of his penis. Subsequently he has been urinating blood and then for the past hour he has not been able to urinate. He has 2 mechanical valves and is anticoagulated with warfarin with goal INR is 2.5-3.5. He checks his INR at home. Last week his INR was 3.0. He is in a multi decade monogamous relationship with his partner. He has never had a sexually transmitted infection. He is circumcised. He denies any fevers chills nausea vomiting chest pain shortness of breath. He did have some abdominal discomfort before Russo catheter was inserted but this has nearly resolved. He was found to have 417 cc on bedside bladder scan by nursing. Related Data Home Medications Medication Instructions Recorded Confirmed acetaminophen 650 mg tablet 1,300 mg PO BID 07/01/12 08/20/22 cyanocobalamin (vitamin B-12) 1,000 mcg PO DAILY #90 tab-caps 05/26/15 08/20/22 2,500 mcg tablet warfarin 4 mg tablet See Rx Instructions .Route 10/02/21 08/20/22 .COMPLEX #59 tabs warfarin 5 mg tablet See Rx Instructions .Route 10/02/21 08/20/22 .COMPLEX #90 tabs amoxicillin 500 mg tablet See Rx Instructions PO .COMPLEX #8 03/22/22 08/20/22 tab-caps finasteride 5 mg tablet 5 mg PO DAILY #90 tab-caps 06/21/22 08/20/22 wheat dextrin 3 gram/3.8 gram oral See Rx Instructions PO BID 07/12/22 08/20/22 powder (Benefiber Sugar Free (dextrin)) loperamide 2 mg tablet (Imodium 2 - 4 mg PO QID PRN loose stool 07/13/22 08/20/22 A-D) #360 tab-caps simvastatin 10 mg tablet 10 mg PO DAILY #90 tab-caps 08/10/22 08/20/22 Previous Rx's Medication Instructions Recorded warfarin 4 mg tablet See Rx Instructions .Route 10/02/21 .COMPLEX #59 tabs warfarin 5 mg tablet See Rx Instructions .Route 10/02/21 .COMPLEX #90 tabs amoxicillin 500 mg tablet See Rx Instructions PO .COMPLEX #8 03/22/22 tab-caps finasteride 5 mg tablet 5 mg PO DAILY #90 tab-caps 06/21/22 loperamide 2 mg tablet (Imodium 2 - 4 mg PO QID PRN loose stool 07/13/22 A-D) #360 tab-caps simvastatin 10 mg tablet 10 mg PO DAILY #90 tab-caps 08/10/22 Allergies Allergy/AdvReac Type Severity Reaction Status Date / Time phenytoin Allergy Severe Rash, Verified 07/19/22 09:38 elevated glucose vaccine adjuvant emulsion AdvReac Severe Other (See Verified 07/19/22 09:38 [id number] Comment) [From Fluad 2015-(65yr+)(PF)] General Stated Complaint: Urinary CHINO: 3 PFSH All Active Problems (Updated 08/20/22 @ 23:20 by Serafin Guzman MD) Normocytic anemia (Acute) Clot hematuria (Acute) Acute urinary retention (Acute) Conductive hearing loss in right ear (Acute) Acute serous otitis media, right ear (Acute) Mechanical heart valve present (Chronic 04/08/04) AVR/MVR ST jUDES 08/2004 FOR ENDOCARDITIS [facility] DR KATHY Vega [employer] [facility] home INR unit group home (current) use of anticoagulants (Chronic 08/06/04) MECHANICAL AORTIC AND MITRAL VALVES; GOAL INR 2.5-3.5 (goal range changed to 2.5-3.5 after 12/05/2017 [facility] Hematology consult [Dr. Brandt]) Tendinitis of left rotator cuff (Acute) COLTON (obstructive sleep apnea) (Chronic) Moderate, oral appliance (did not tolerate CPAP), Dr. 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 H90.A11 Sensorineural Hearing loss, bilateral-H90.3 Chronic serous otitis media, right ear (Chronic 02/21/17) Chronic pain of left knee (Chronic 02/24/16) Chronic rhinitis (Chronic 07/03/12) BPH w urinary obs/LUTS (Chronic 07/03/12) B12 deficiency (Chronic 05/26/15) Medical History Dilated aortic root Endocarditis Initial reason for AVR/MVR and recurrent prosthetic valve endocarditis Gastrointestinal bleed (07/13/15) Negative EGD [facility] 06/10/2015; neg colonoscopy 07/08/2015 [place]; capsule endoscopy [facility] 08/19/15 AVMs of small bowel and cecum Repeat GI bleed 2015 and again 2017 s/p hemorrhoidectomy 04/2017 History of atrial fibrillation Lichen planus (07/16/11) Low back pain without sciatica (07/16/11) 01/04/16 CT LS spine: DJD, spinal stenosis L4-5, multi level foraminal stenosis; [facility] Mitral and aortic heart valve diseases, unspecified (07/16/11) S/p AVR/MVR mechanical ST JUDES 08/2004 FOR ENDOCARDITIS [facility] DR CHAVEZ; echo 04/24/16 [facility] EF 60% Seborrheic keratoses (02/02/21) Surgical History Colonoscopy - MAC (01/30/13) Hyperplastic polyp EGD - IV Sedation Hemorrhoidectomy (04/23/17) left total knee revision,poly exchange, patellar resurfacing (07/22/12) Dr. Gonzalez [facility] Valve Replacement Aortic and mitrial Family History Mother Heart disease Hypertension Father Heart disease Maternal Uncle Heart disease Social History Smoking/Tobacco Use Status: Former Tobacco Use Tobacco: How many years used: 5 Smoking risk assessment performed?: Yes Alcohol Intake: current Alcohol Intake frequency: 0-2 drinks per day Drug use: Never Substance use type: does not use Adopted: No Caregiver/Support person: No Foster care: No Household members: spouse and children Housing: house Number of Children: 4 number of grandchildren: 5 Communication Needs: Hard of Hearing Education Level: master's degree 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 Pets and animals: Yes Pets and animals: cat(s) and dog(s) Sexually active: Yes Do you think of yourself as: straight/heterosexual Current gender identity: male What is your relationship status?: How often do you talk on the phone with friends or family?: once per week How often do you get together with friends or relatives?: once per week Do you belong to any clubs or organized social groups?: no Panel score (0-1 are the most socially isolated patients): 1 What type of physical activity do you participate in: bicycling, regular exercise, weight lifting and other Details: circuit training Duration: 15-30 minutes/day Frequency: 3-4 times per week Dayna/Hinduism: Roman Catholic Special dayna needs: No Seatbelt use: always Helmet use: Yes Drive intox or ride w/intox moving van driver: No Do you feel safe at home: Yes Do you feel safe in your relationship?: Yes Exam Narrative Exam Narrative: General: Well-appearing in no acute distress speaking in complete sentences. Head: Normocephalic, atraumatic. Eye: Pupils equal, round reactive to light. Extraocular eye movements intact. No conjunctival injection. No scleral icterus. Ear, nose, mouth, throat: Grossly normal inspection. Normal voice, handling secretions normally. Neck: Trachea midline. Cardiovascular: Well-perfused distal extremities. Respiratory: Nonlabored respiration. Gastrointestinal: Nondistended abdomen. : Russo catheter in place draining dark red urine. 200 cc in bag. Musculoskeletal: No edema. Moving all 4 extremities spontaneously. Skin: Normal for age and race, grossly normal temperature and turgor. No acute rash. Neurologic: Alert and appropriate, no apparent acute deficits. Psychiatric: Mood and manner are appropriate. Grooming and personal hygiene are appropriate. Course Vital Signs Vital signs: Vital Signs Temperature 36.6 C 08/20/22 22:50 Pulse 66 08/20/22 22:50 Respiratory Rate 16 08/20/22 22:50 Blood Pressure 171/83 H 08/20/22 22:50 Pulse Oximetry 99 08/20/22 22:50 Temperature 36.6 C 08/20/22 22:50 Temperature Source Oral 08/20/22 22:50 Pulse 66 08/20/22 22:50 Respiratory Rate 16 08/20/22 22:50 Respiratory Effort Normal 08/20/22 22:55 Blood Pressure 171/83 H 08/20/22 22:50 Pulse Oximetry 99 08/20/22 22:50 Oxygen Delivery Method Room Air 08/20/22 22:50 Oxygen Flow Rate 0 08/20/22 22:50
[2022-08-20 23:17] LABS: Abs Immature Grans 0.01 10^3/uL (0.0-0.06); Absolute Basophil Count 0.03 10^3/uL (0.0-0.2); Absolute Eosinophil Count 0.24 10^3/uL (0.0-0.7); Absolute Lymphocyte Count 1.37 10^3/uL (1.2-3.4); Absolute Monocyte Count 0.64 10^3/uL (0.1-0.8); Absolute Neutrophil Count 4.04 10^3/uL (1.2-6.7); Basophils % 0.5; Eosinophils % 3.8; HCT 36.8 % (40.0-50.0); HGB 12.7 g/dL (13.5-17.5); Immature Grans % 0.2; Lymphocytes % 21.6; MCH 31.5 pg (27.0-33.0); MCHC 34.5 % (32.0-36.0); MCV 91 fL (80-95); MPV 9.2 fL (8.0-11.0); Monocytes % 10.1; Neutrophils % 63.8; Platelet Count 276 10^3/uL (130-400); RBC 4.03 10^6/uL (4.36-5.78); RDW 13.7 % (11.8-14.1); RDW-SD 46.3 fL; WBC 6.33 10^3/uL (4.4-10.8)
[2022-08-20 23:19] LABS: Bilirubin Negative (Negative); Blood Large (Negative); Clarity Turbid (Clear); Glucose Negative (Negative); Ketones Negative (Negative); Leukocyte Esterase Negative (Negative); Nitrite Negative (Negative); Urobilinogen 0.2 mg/dL (Up to 0.2)
[2022-08-20 23:27] LABS: Anion Gap 7.5 mmol/L (3-11); BUN 28 mg/dL (7-18); CO2 26.5 mmol/L (21.0-32.0); CREATININE 1.1 mg/dL (0.70-1.30); Calcium 8.7 mg/dL (8.5-10.1); Chloride 102 mmol/L (98-107); Estimated GFR 69.14 (mL/min/1.73m2); Glucose 106 mg/dL (74-106); Potassium 4.3 mmol/L (3.5-5.1); Sodium 136 mmol/L (136-145)
[2022-08-20 23:28] LABS: INR 3.3 (0.9-1.1); Prothrombin Time 33.5 sec (9.3-11.0)
[2022-08-20 23:31] LABS: RBC >50 HPF (0-2); Specific Gravity 1.025 (1.005-1.025)
[2022-08-20 23:32] LABS: C & S Indicated? Yes
[2022-08-21] MEDS: fentaNYL 100 MCG/2 ML VIAL 75 MCG IVP
[2022-08-21] MEDS: HYDROmorphone 2 MG/ML SYR 0.5 MG IVP ×2 (00:18→01:18)
[2022-08-21] MEDS: Normal Saline 500 ML IV (00:19)
[2022-08-21 00:21] VITALS: BP 162/72; PULSE 72; RESP 16; O2SAT 98
[2022-08-21] MEDS: Ondansetron 4 MG/2 ML VIAL IVP (01:25)
== END 2022-08-21 01:23 ==
PROVIDERS: Emergency Provider Emergency Medicine; PCP Nurse Practitioner Family
DX: D64.9 Anemia, unspecified (principal); R31.9 Hematuria, unspecified; R33.9 Retention of urine, unspecified; Z79.01 Long term (current) use of anticoagulants; R79.89 Other specified abnormal findings of blood chemistry
CPT/HCPCS: 36415; 51702; 80048; 96361; 96374; 96375; 96376; 99284; 99285; 81003; 81015; 85025; 85610; 87086; J1170; J2405; J3010

== ENCOUNTER 2022-08-29 05:40 | Outpatient (CLI) | payer BC, SELFPAY ==
[2022-08-29 12:55] LABS: HGB 8.1 g/dL (13.5-17.5); MCH 31.5 pg (27.0-33.0); MCHC 32.4 % (32.0-36.0); MCV 97 fL (80-95); MPV 8.8 fL (8.0-11.0); Platelet Count 428 10^3/uL (130-400); RBC 2.57 10^6/uL (4.36-5.78); RDW 16.7 % (11.8-14.1); WBC 6.79 10^3/uL (4.4-10.8)
[2022-08-29 13:06] LABS: INR 1.4 (0.9-1.1); Prothrombin Time 14.4 sec (9.3-11.0)
[2022-08-29 13:46] LABS: Ferritin 93 ng/mL (26-388)
== END 2022-08-29 05:41 | disposition home or self-care (01) ==
LOC: LBO 05:40
PROVIDERS: PCP Nurse Practitioner Family; Visit Provider Nurse Practitioner Adult Health
DX: D64.9 Anemia, unspecified (principal); R31.0 Gross hematuria; Z79.01 Long term (current) use of anticoagulants; Z95.2 Presence of prosthetic heart valve; R79.1 Abnormal coagulation profile
CPT/HCPCS: 36415; 85027; 82728; 85610

== ENCOUNTER 2022-09-05 04:42 | Outpatient (CLI) | payer BC, SELFPAY ==
[2022-09-05 07:16] LABS: HCT 29.5 % (40.0-50.0); HGB 9.2 g/dL (13.5-17.5); MCH 31.5 pg (27.0-33.0); MCHC 31.2 % (32.0-36.0); MCV 101 fL (80-95); MPV 8.1 fL (8.0-11.0); Platelet Count 351 10^3/uL (130-400); RBC 2.92 10^6/uL (4.36-5.78); RDW 17.5 % (11.8-14.1); RDW-SD 64.3 fL; WBC 6.32 10^3/uL (4.4-10.8)
[2022-09-05 07:27] LABS: INR 2.4 (0.9-1.1); Prothrombin Time 24.7 sec (9.3-11.0)
== END 2022-09-05 04:43 | disposition home or self-care (01) ==
LOC: LBO 04:42
PROVIDERS: Nurse Practitioner Adult Health; PCP Nurse Practitioner Family; Referring Provider Nurse Practitioner Family; Visit Provider Nurse Practitioner Family
DX: D64.9 Anemia, unspecified (principal); R79.1 Abnormal coagulation profile; Z95.2 Presence of prosthetic heart valve; Z79.01 Long term (current) use of anticoagulants
CPT/HCPCS: 36415; 85027; 85610

== ENCOUNTER 2022-10-10 02:33 | Outpatient (CLI) | payer BC, SELFPAY ==
[2022-10-10 08:40] LABS: Abs Immature Grans 0.01 10^3/uL (0.0-0.06); Absolute Basophil Count 0.04 10^3/uL (0.0-0.2); Absolute Lymphocyte Count 1.38 10^3/uL (1.2-3.4); Absolute Monocyte Count 0.58 10^3/uL (0.1-0.8); Absolute Neutrophil Count 2.68 10^3/uL (1.2-6.7); Basophils % 0.8; Eosinophils % 4.1; HCT 41.5 % (40.0-50.0); HGB 13.4 g/dL (13.5-17.5); Immature Grans % 0.2; Lymphocytes % 28.2; MCH 31.2 pg (27.0-33.0); MCHC 32.3 % (32.0-36.0); MCV 97 fL (80-95); MPV 9.5 fL (8.0-11.0); Monocytes % 11.9; Neutrophils % 54.8; Platelet Count 269 10^3/uL (130-400); RBC 4.29 10^6/uL (4.36-5.78); RDW 13.5 % (11.8-14.1); RDW-SD 48.4 fL; WBC 4.89 10^3/uL (4.4-10.8)
[2022-10-10 12:14] LABS: Prothrombin Time 47.8 sec (9.3-11.0)
[2022-10-10 13:04] LABS: INR 4.8 (0.9-1.1)
== END 2022-10-10 02:34 | disposition home or self-care (01) ==
LOC: LBO 02:33
PROVIDERS: PCP Nurse Practitioner Family; Visit Provider Nurse Practitioner Family
DX: D64.9 Anemia, unspecified (principal); Z79.01 Long term (current) use of anticoagulants
CPT/HCPCS: 36415; 85025; 85610

== ENCOUNTER 2023-07-18 09:00 | Outpatient (CLI) | payer BC, SELFPAY ==
--- NOTE | 2023-07-18 09:00 | RT.EKG_ITS ---
APPROVED REPORT Exam: Resting ECG Reason for Exam: Pre-op exam Patient Location: O HR:51 bpm ECG Measurements Heart Rate 51 AXIS UT 152 P 89 QRSd 171 QRS -66 QT 502 T 2 QTc 463 Conclusion Sinus rhythm...normal P axis, V-rate 50- 99 RBBB and LAFB...QRSd >120mS, axis(-40,240)
== END 2023-07-18 09:01 | disposition home or self-care (01) ==
LOC: DI.KIM 09:01
PROVIDERS: PCP Family Medicine; Visit Provider Family Medicine
DX: Z01.818 Encounter for other preprocedural examination (principal)
CPT/HCPCS: 93010

== ENCOUNTER 2023-08-30 12:15 | Emergency (ER) | payer BC, SELFPAY ==
[2023-08-30] VITALS (96 sets, daily range): BP systolic 119–184; BP diastolic 69–139; PULSE 55–123; RESP 10–39; TEMP 36.5–37.2; O2SAT 96–100
--- NOTE | 2023-08-30 12:30 | RT.EKG_ITS ---
APPROVED REPORT Exam: Resting ECG Reason for Exam: weakness, sob Patient Location: E HR:115 bpm ECG Measurements Heart Rate 115 AXIS GA 91 P 0 QRSd 153 QRS -59 QT 372 T 54 QTc 504 Conclusion Sinus tachycardia with irregular rate...V-rate 72-170, variation>10% RBBB and LAFB...QRSd >120mS, axis(-40,240) Physician: RBBB, unchanged from prior ekg on 07/30
--- NOTE | 2023-08-30 12:30 | DI.US_ITS ---
Exam(s) US LOWER EXTREMITY VENOUS RT EXAM: US LOWER EXTREMITY VENOUS RT CLINICAL HISTORY: right lower extremity swelling, pain. TECHNIQUE: Lower extremity venous ultrasound performed using grayscale, color-flow, and spectral Do ppler analysis. COMPARISON: No exams were available for comparison FINDINGS: The common femoral, femoral and popliteal veins demonstrate normal compressibility, augmentation, and color Doppler. The posterior tibial veins are patent. No saphenous vein thrombosis or other superfi cial venous thrombosis is seen. No hematoma or Claudio's cyst is seen. Lower leg edema. IMPRESSION: Lower leg edema. No evidence of DVT. DATA REPOSITORY:
--- NOTE | 2023-08-30 12:55 | ED.GENADUL_ITS ---
Discharge Plan Disposition Patient Disposition: Home Condition: Stable Discharge Details Clinical Impression: Postoperative anemia due to acute blood loss Primary Care Provider: Asha Khoury ED Provider: Katina Mcmanus Home Meds and New Rx's Prescriptions: Continued loperamide [Imodium A-D] 2 mg tablet 2 - 4 mg PO QID MDD 16 mg PRN (Reason: loose stool) Qty: 360 0RF acetaminophen 650 MG tablet 1,300 mg PO BID Rx Instructions: Tyulenol ARthritis when necessary. cyanocobalamin (vitamin B-12) 2,500 MCG tablet 1,000 mcg PO DAILY Qty: 90 amoxicillin 500 mg tablet See Rx Instructions PO .COMPLEX Qty: 8 1RF Hold Instructions: only for dental procedures Rx Instructions: Take 2000 mg 30-60 mins prior to dental procedure, then 1000 mg daily for two days following PO; simvastatin 10 mg tablet 10 mg PO DAILY Qty: 90 3RF enoxaparin [Lovenox] 80 mg/0.8 mL syringe 80 mg subcut Q12H Qty: 16 0RF Rx Instructions: Start 4 days pre-op, continue post-op until INR is therapeutic oxycodone 5 mg tablet 5 mg PO TID PRN polyethylene glycol 3350 17 gram/dose powder 17 g PO DAILY Held warfarin 4 mg tablet See Rx Instructions .ROUTE .COMPLEX Qty: 90 3RF Hold Instructions: Until discussed with your post acute care registered nurse Protocol: Dose Management Condition: Saturday Dose/Route: 0 mg Instruction: 0 tablets Condition: Saturday Dose/Route: 0 mg Instruction: 0 tablets Condition: Saturday Dose/Route: 9 mg Instruction: 1 x 4 mg tablet, 1 x 5 mg tablet Condition: Saturday Dose/Route: 9 mg Instruction: 1 x 4 mg tablet, 1 x 5 mg tablet Condition: Dose/Route: 14 mg Instruction: 1 x 4 mg tablet, 2 x 5 mg tablets Condition: Saturday Dose/Route: 14 mg Instruction: 1 x 4 mg tablet, 2 x 5 mg tablets Condition: Saturday Dose/Route: 7 mg Instruction: 0.5 x 4 mg tablets, 1 x 5 mg tablet Protocol Text: Adjustment Start Date: 08/29/23 INR Value: 1.9 INR Date: 08/29/23 Recheck Date: 09/03/23 Additional Instructions: Per TM, dosing as above plus on 09/01 pt should also take 7mg. Also should continue lovenox 80mg daily until INR in range. LM on well id'd VM w/instructions-LH Dose Instruction: TAKE DIRECTED BY MOUTH PER DOSE MANAGEMENT PROTOCOL DAILY Rx Instructions: TAKE DIRECTED BY MOUTH PER DOSE MANAGEMENT PROTOCOL DAILY warfarin 5 mg tablet See Rx Instructions .ROUTE .COMPLEX Qty: 90 3RF Hold Instructions: Until discussed with your post acute care registered nurse Protocol: Dose Management Condition: Saturday Dose/Route: 0 mg Instruction: 0 tablets Condition: Saturday Dose/Route: 0 mg Instruction: 0 tablets Condition: Saturday Dose/Route: 9 mg Instruction: 1 x 4 mg tablet, 1 x 5 mg tablet Condition: Saturday Dose/Route: 9 mg Instruction: 1 x 4 mg tablet, 1 x 5 mg tablet Condition: Dose/Route: 14 mg Instruction: 1 x 4 mg tablet, 2 x 5 mg tablets Condition: Saturday Dose/Route: 14 mg Instruction: 1 x 4 mg tablet, 2 x 5 mg tablets Condition: Saturday Dose/Route: 7 mg Instruction: 0.5 x 4 mg tablets, 1 x 5 mg tablet Protocol Text: Adjustment Start Date: 08/29/23 INR Value: 1.9 INR Date: 08/29/23 Recheck Date: 09/03/23 Additional Instructions: Per TM, dosing as above plus on 09/01 pt should also take 7mg. Also should continue lovenox 80mg daily until INR in range. LM on well id'd VM w/instructions-LH Dose Instruction: TAKE 1 TABLET BY MOUTH DAILY WITH 4 MG TABLETS DIRECTED, TAKES 7 MG 5 DAYS A WEEK AND 9 MG 2 DAYS A WEEK Rx Instructions: TAKE 1 TABLET BY MOUTH DAILY WITH 4 MG TABLETS DIRECTED, TAKES 7 MG 5 DAYS A WEEK AND 9 MG 2 DAYS A WEEK Discharge Instructions Instructions: Anemia (ED) Additional Instructions: You have received 2 units of packed red blood cells There is no active sign of bleeding noted other than a moderate hemarthrosis of your surgical knee Your post acute care registered nurse did instruct you to hold your warfarin for now will defer further recommendations to cardiology Continue Lovenox as previously directed Return here sooner for new or worsening symptoms, including but not limited to fever dizziness chest pain shortness of breath or active bleeding you have been given a lab slip to have your blood work checked in the next 2 to 3 days Referrals: Sarah Beth Ga [ NON-[facility] STAFF PHYSICIAN] - (Call the office first thing tomorrow morning for further follow-up evaluation) Discharge Data Discharge Date/Time-TO BE ENTERED AT DEPARTURE: 08/30/23 21:55 HPI <THANH Berry - Last Filed: 08/31/23 20:00> General Date/Time Provider Initiated Documentation: 08/30/23 12:22 . HPI Narrative: This 77-year-old male presents with dyspnea and significant swelling to right knee. Postop day 4 and noticed swelling on Saturday. He was taking Lovenox preoperatively and reinitiated this the evening postoperatively. He resumed his warfarin on Saturday of this week. Patient states he feels short of breath and fatigued. He states this started this morning. He denies any fever or chills. He denies any increased pain to the right knee. Denies orthopnea. States that he is felt like this previously when he was anemic and is concerned he may be presenting with this diagnosis. Denies any congestion or cough. Related Data Home Medications Medication Instructions Recorded Confirmed acetaminophen 650 mg tablet 1,300 mg PO BID 07/01/12 08/30/23 cyanocobalamin (vitamin B-12) 1,000 mcg PO DAILY #90 tab-caps 05/26/15 08/30/23 2,500 mcg tablet loperamide 2 mg tablet (Imodium 2 - 4 mg (1 - 2 x 2 mg) PO QID PRN 07/13/22 08/30/23 A-D) loose stool #360 tab-caps amoxicillin 500 mg tablet See Rx Instructions PO .COMPLEX #8 05/20/23 08/30/23 tab-caps simvastatin 10 mg tablet 10 mg PO DAILY #90 tab-caps 07/12/23 08/30/23 warfarin 4 mg tablet See Rx Instructions .Route 07/29/23 08/30/23 .COMPLEX #90 tabs warfarin 5 mg tablet See Rx Instructions .Route 08/09/23 08/30/23 .COMPLEX #90 tabs enoxaparin 80 mg/0.8 mL 80 mg (0.8 mL) subcut Q12H #16 mL 08/16/23 08/30/23 subcutaneous syringe (Lovenox) oxycodone 5 mg tablet 5 mg PO TID PRN 08/30/23 08/30/23 polyethylene glycol 3350 17 17 g PO DAILY 08/30/23 08/30/23 gram/dose oral powder Previous Rx's Medication Instructions Recorded loperamide 2 mg tablet (Imodium 2 - 4 mg (1 - 2 x 2 mg) PO QID PRN 07/13/22 A-D) loose stool #360 tab-caps amoxicillin 500 mg tablet See Rx Instructions PO .COMPLEX #8 05/20/23 tab-caps simvastatin 10 mg tablet 10 mg PO DAILY #90 tab-caps 07/12/23 warfarin 4 mg tablet See Rx Instructions .Route 07/29/23 .COMPLEX #90 tabs warfarin 5 mg tablet See Rx Instructions .Route 08/09/23 .COMPLEX #90 tabs enoxaparin 80 mg/0.8 mL 80 mg (0.8 mL) subcut Q12H #16 mL 08/16/23 subcutaneous syringe (Lovenox) Allergies Allergy/AdvReac Type Severity Reaction Status Date / Time phenytoin Allergy Severe Rash, Verified 08/30/23 13:02 elevated glucose vaccine adjuvant emulsion AdvReac Severe Other (See Verified 08/30/23 13:02 [id number] Comment) [From Fluad 2014-(65yr+)(PF)] General Stated Complaint: Orthopedic CHINO: 3 Exam <THANH Berry - Last Filed: 08/31/23 20:00> Narrative Exam Narrative: 77-year-old male alert and oriented, pale in appearance, intermittent sinus tachycardia, murmur for mechanical valve, no respiratory distress, no abdominal tenderness, pallor, alert and oriented x 4, right knee with large effusion, overlying ecchymosis without significant tenderness, neurovascularly intact to bilateral lower extremities, no wound dehiscence no significant calf swelling Course <THANH Berry - Last Filed: 08/31/23 20:00> Vital Signs Vital signs: Vital Signs Temperature 36.7 C 08/30/23 12:18 Pulse 80 08/30/23 12:18 Respiratory Rate 16 08/30/23 12:18 Blood Pressure 119/89 08/30/23 12:18 Pulse Oximetry 100 08/30/23 12:18 Temperature 36.7 C 08/30/23 12:18 Temperature Source Skin 08/30/23 12:18 Pulse 80 08/30/23 12:18 Respiratory Rate 16 08/30/23 12:18 Respiratory Effort Normal, Non-Labored 08/30/23 12:36 Blood Pressure 119/89 08/30/23 12:18 Pulse Oximetry 100 08/30/23 12:18 Oxygen Delivery Method Room Air 08/30/23 12:18 Oxygen Flow Rate 0 08/30/23 12:18 Pain Level 2 08/30/23 12:18 Comment taking oxycodone 5 mg Q5H and tylenol BID continuing with ice and compression stockings 08/30/23 12:18 Procedures <Bina Poole NP - Last Filed: 09/02/23 09:21> Stool Hemoccult Procedural Steps Taken: stool placed in appropriate test area, developer placed on stool and control areas and controls appropriately positive and negative Hemoccult result: negative Medical Decision Making <THANH Berry - Last Filed: 08/31/23 20:00> 77-year-old male presenting with report of some dyspnea and lightheadedness with swelling to his right knee postoperative 4 days on chronic anticoagulation for history of mechanical heart valve. On Lovenox and Coumadin. Right knee with large effusion on x-ray, ultrasound does not show evidence of DVT and CTA without evidence of PE or any acute cardiopulmonary abnormality. Initial hemoglobin is 9 and hematocrit of 27, changed from 13 in October 2022. Given that patient is symptomatic without any additional findings I did repeat hemoglobin and hematocrit which dropped to 6.4 and 19. Patient has not had any bowel movements since surgery and denies any blood in his stool previously. 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 Compression was reapplied and 1 unit of blood was ordered after consent obtained. Patient is intermittently tachycardic ranging from 80-1 16, this is a change in his I suspect related to active bleeding. Blood pressures remained stable. Given complexity of patient's history I did speak with Maria Esther, nurse practitioner for [facility] who also involved cardiac fellow who recommendation is to discontinue Coumadin and continue either heparin or Lovenox at orthopedics discretion with admission for observation and continued evaluation. Cardiology feels that should patient become hemodynamically stable, risk-benefit discussion with stopping Lovenox for no more than 24 hours would be a last resort. At this time we will hold Coumadin,. [facility] orthopedics pending return call after being paged at 1500 as patient will need transfer back to their facility for continuity of care. Patient aware plan and need for admission. care transition to Bina Poole NP @1600 pending orthopedic return call. 1613: [facility]: Care assumed from provider (THANH Berry) Please see their initial HPI, PE, and documentation. Discussed patient details and case and pending workup and disposition. Patient is hemodynamically stable, and alert and oriented. At the time of sign out awaiting callback from [facility]. 1615: Dr. Ga does not feel it is orthopedic related, will need medicine admission, he does not think that Hemearthrosis would be the primary reason for anemia. He recommends 3 units of blood and abdominal CT to rule out GI bleed. Is willing to consult. 1635: Hospitalist for [facility] paged. On patient reevaluation he denies any abdominal pain. He has been constipated so has not noticed any dark or tarry stools. He reports he is only had 1 bowel movement since his surgery. Guaiac stool is negative. He is receiving a unit of PRBCs at this time. 1730 care of patient received from THANH Rust patient is receiving unit of packed red blood cells hemodynamically he is stable voicing no complaints Imaging reviewed and shows no source of active bleeding. He has had no loose stools suggesting a GI bleed (rectal showed negative stool for OB). He has remained hemodynamically stable while receiving the blood transfusion. Phone call back from stewarding supervisor at [facility] and transfer request is declined Repeat hemoglobin and hematocrit 6.9 and 21., Second unit of packed red blood cells ordered Patient continues to remain hemodynamically stable while monitored in the department. He states he is feeling improved. Post second transfusion counts now 9.9 and 29.9. Using shared decision making, patient opts for discharge to home with close outpatient follow-up. As he has remained hemodynamically stable and will not be home alone, it is reasonable that he be discharged home for further outpatient monitoring. Joie had spoken earlier with cardiology who recommends holding Coumadin for now he will continue enoxaparin 80 mg subcu twice daily. A dose was administered this evening at approximately 2044. I will also give him a lab slip to have outpatient CBC and INR done in the next 2 to 3 days he was advised to return here sooner for new or worsening symptoms. Discharge instructions reviewed with patient and his both verbalized understanding of plan and are comfortable with plan and are happy to be discharged to home. He has had no increased knee pain or swelling while being monitored here in the department I did give him 1000 mg of IV Tylenol for pain. He will call [facility] in the morning and will also touch base with his post acute care registered nurse regarding when to reinitiate his Coumadin. Quality:[facility] Health Related Social Needs: No Data to Display <Bina Poole NP - Last Filed: 09/02/23 09:21> 77-year-old male presenting with report of some dyspnea and lightheadedness with swelling to his right knee postoperative 4 days on chronic anticoagulation for history of mechanical heart valve. On Lovenox and Coumadin. Right knee with large effusion on x-ray, ultrasound does not show evidence of DVT and CTA without evidence of PE or any acute cardiopulmonary abnormality. Initial hemoglobin is 9 and hematocrit of 27, changed from 13 in October 2022. Given that patient is symptomatic without any additional findings I did repeat hemoglobin and hematocrit which dropped to 6.4 and 19. Patient has not had any bowel movements since surgery and denies any blood in his stool previously. 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 Compression was reapplied and 1 unit of blood was ordered after consent obtained. Patient is intermittently tachycardic ranging from 80-1 16, this is a change in his I suspect related to active bleeding. Blood pressures remained stable. Given complexity of patient's history I did speak with Maria Esther, nurse practitioner for [facility] who also involved cardiac fellow who recommendation is to discontinue Coumadin and continue either heparin or Lovenox at orthopedics discretion with admission for observation and continued evaluation. Cardiology feels that should patient become hemodynamically stable, risk-benefit discussion with stopping Lovenox for no more than 24 hours would be a last resort. At this time we will hold Coumadin,. [facility] orthopedics pending return call after being paged at 1500 as patient will need transfer back to their facility for continuity of care. Patient aware plan and need for admission. care transition to Bina Poole NP @1600 pending orthopedic return call. 1613: [facility]: Care assumed from provider (THANH Berry) Please see their initial HPI, PE, and documentation. Discussed patient details and case and pending workup and disposition. Patient is hemodynamically stable, and alert and oriented. At the time of sign out awaiting callback from [facility]. 1615: Dr. Ga does not feel it is orthopedic related, will need medicine admission, he does not think that Hemearthrosis would be the primary reason for anemia. He recommends 3 units of blood and abdominal CT to rule out GI bleed. Is willing to consult. 1635: Hospitalist for [facility] paged. On patient reevaluation he denies any a bdominal pain. He has been constipated so has not noticed any dark or tarry stools. He reports he is only had 1 bowel movement since his surgery. Guaiac stool is negative. He is receiving a unit of PRBCs at this time. Care is to be handed off to oncoming provider Katina Mcmanus [employer] pending [facility] hospitalist return call and CT abdomen extremity result. I did discuss patient case in details with her she verbalized understanding. At this time patient is hemodynamically stable alert and oriented and conversive. This text was generated using [employer] dictation system, please disregard any oddities of phrase or misspellings. 1730: care of patient received from THANH Rust patient is receiving unit of packed red blood cells hemodynamically he is stable voicing no complaints Imaging reviewed and shows no source of active bleeding. He has had no loose stools suggesting a GI bleed (rectal showed negative stool for OB). He has remained hemodynamically stable while receiving the blood transfusion. Phone call back from stewarding supervisor at [facility] and transfer request is declined Repeat hemoglobin and hematocrit 6.9 and 21., Second unit of packed red blood cells ordered Patient continues to remain hemodynamically stable while monitored in the department. He states he is feeling improved. Post second transfusion counts now 9.9 and 29.9. Using shared decision making, patient opts for discharge to home with close outpatient follow-up. As he has remained hemodynamically stable and will not be home alone, it is reasonable that he be discharged home for further outpatient monitoring. Joie had spoken earlier with cardiology who recommends holding Coumadin for now he will continue enoxaparin 80 mg subcu twice daily. A dose was administered this evening at approximately 2044. I will also give him a lab slip to have outpatient CBC and INR done in the next 2 to 3 days he was advised to return here sooner for new or worsening symptoms. Discharge instructions reviewed with patient and his both verbalized understanding of plan and are comfortable with plan and are happy to be discharged to home. He has had no increased knee pain or swelling while being monitored here in the department I did give him 1000 mg of IV Tylenol for pain. He will call [facility] in the morning and will also touch base with his post acute care registered nurse regarding when to reinitiate his Coumadin. Lab Data Lab results reviewed: Yes I reviewed the patient's lab results. Labs: Laboratory Tests Range/Units 08/30/23 08/30/23 08/30/23 12:55 12:55 14:30 WBC (4.4-10.8) 10^3/uL 9.34 6.39 RBC (4.36-5.78) 10^6/uL 2.85 L 2.02 L Hgb (13.5-17.5) g/dL 9.0 L 6.4 L* D Hct (40.0-50.0) % 27.2 L 19.3 L* MCV (80-95) fL 95 96 H MCH (27.0-33.0) pg 31.6 31.7 MCHC (32.0-36.0) % 33.1 33.2 RDW (11.8-14.1) % 13.7 13.7 Plt Count (130-400) 10^3/uL 313 226 MPV (8.0-11.0) fL 9.3 9.7 Immature Gran % % 0.4 0.3 Neutrophils % % 84.8 80.5 Lymphocytes % % 6.5 8.6 Monocytes % % 8.0 10.2 Eosinophils % % 0.1 0.2 Basophils % % 0.2 0.2 Nucleated RBC % (0.0-0.3) % 0.0 0.0 Absolute Neutrophils (1.2-6.7) 10^3/uL 7.91 H 5.15 Absolute Lymphocytes (1.2-3.4) 10^3/uL 0.61 L 0.55 L Absolute Monocytes (0.1-0.8) 10^3/uL 0.75 0.65 Absolute Eosinophils (0.0-0.7) 10^3/uL 0.01 0.01 Absolute Basophils (0.0-0.2) 10^3/uL 0.02 0.01 RBC Morphology Normal ESR (0-20) mm/hr 22 H PT (9.1-11.1) sec 20.2 H INR (0.9-1.1) 2.1 H Sodium (136-145) mmol/L 137 Potassium (3.5-5.1) mmol/L 3.9 Chloride (98-107) mmol/L 100 Carbon Dioxide (21.0-32.0) mmol/L 26.1 Anion Gap (3-11) mmol/L 10.9 BUN (7-18) mg/dL 23 H Creatinine (0.70-1.30) mg/dL 1.3 Est GFR (CKD-EPI 2020) (mL/min/1.73m2) 56.23 Glucose (74-106) mg/dL 157 H Calcium (8.5-10.1) mg/dL 8.8 Total Bilirubin (0.2-1.0) mg/dL 0.8 AST (15-37) U/L 37 ALT (16-63) U/L 53 Alkaline Phosphatase (46-116) U/L 79 Troponin I (< or =60) ng/L < 50 C-Reactive Protein (<or=0.5) mg/dL 5.56 H Cancelled NT-Pro-B Natriuret Pep (<300) pg/mL 2507 H Total Protein (6.4-8.2) g/dL 7.0 Albumin (3.4-5.0) g/dL 3.5 ABO/Rh O Positive Antibody Screen NEGATIVE Crossmatch See Detail <Katina Mcmanus, [employer] - Last Filed: 08/30/23 22:00> 77-year-old male presenting with report of some dyspnea and lightheadedness with swelling to his right knee postoperative 4 days on chronic anticoagulation for history of mechanical heart valve. On Lovenox and Coumadin. Right knee with large effusion on x-ray, ultrasound does not show evidence of DVT and CTA without evidence of PE or any acute cardiopulmonary abnormality. Initial hemoglobin is 9 and hematocrit of 27, changed from 13 in October 2022. Given that patient is symptomatic without any additional findings I did repeat hemoglobin and hematocrit which dropped to 6.4 and 19. Patient has not had any bowel movements since surgery and denies any blood in his stool previously. 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 Compression was reapplied and 1 unit of blood was ordered after consent obtained. Patient is intermittently tachycardic ranging from 80-1 16, this is a change in his I suspect related to active bleeding. Blood pressures remained stable. Given complexity of patient's history I did speak with Maria Esther, nurse practitioner for [facility] who also involved cardiac fellow who recommendation is to discontinue Coumadin and continue either heparin or Lovenox at orthopedics discretion with admission for observation and continued evaluation. Cardiology feels that should patient become hemodynamically stable, risk-benefit discussion with stopping Lovenox for no more than 24 hours would be a last resort. At this time we will hold Coumadin,. [facility] orthopedics pending return call after being paged at 1500 as patient will need transfer back to their facility for continuity of care. Patient aware plan. 1613: [facility]: Care assumed from provider (THANH Berry) Please see their initial HPI, PE, and documentation. Discussed patient details and case and pending workup and disposition. Patient is hemodynamically stable, and alert and oriented. At the time of sign out awaiting callback from [facility]. 1615: Dr. Ga does not feel it is orthopedic related, will need medicine admission, he does not think that Hemearthrosis would be the primary reason for anemia. He recommends 3 units of blood and abdominal CT to rule out GI bleed. Is willing to consult. 1635: Hospitalist for [facility] paged. On patient reevaluation he denies any abdominal pain. He has been constipated so has not noticed any dark or tarry stools. He reports he is only had 1 bowel movement since his surgery. Guaiac stool is negative. He is receiving a unit of PRBCs at this time. 1730 care of patient received from THANH Rust patient is receiving unit of packed red blood cells hemodynamically he is stable voicing no complaints Imaging reviewed and shows no source of active bleeding. He has had no loose stools suggesting a GI bleed (rectal showed negative stool for OB). He has remained hemodynamically stable while receiving the blood transfusion. Phone call back from stewarding supervisor at [facility] and transfer request is declined Repeat hemoglobin and hematocrit 6.9 and 21., Second unit of packed red blood cells ordered Patient continues to remain hemodynamically stable while monitored in the department. He states he is feeling improved. Post second transfusion counts now 9.9 and 29.9. Using shared decision making, patient opts for discharge to home with close outpatient follow-up. As he has remained hemodynamically stable and will not be home alone, it is reasonable that he be discharged home for further outpatient monitoring. Joie had spoken earlier with cardiology who recommends holding Coumadin for now he will continue enoxaparin 80 mg subcu twice daily. A dose was administered this evening at approximately 2044. I will also give him a lab slip to have outpatient CBC and INR done in the next 2 to 3 days he was advised to return here sooner for new or worsening symptoms. Discharge instructions reviewed with patient and his both verbalized understanding of plan and are comfortable with plan and are happy to be discharged to home. He has had no increased knee pain or swelling while being monitored here in the department I did give him 1000 mg of IV Tylenol for pain. He will call [facility] in the morning and will also touch base with his post acute care registered nurse regarding when to reinitiate his Coumadin. 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 Brandt]) Tendinitis of left rotator cuff (Acute) COLTON (obstructive sleep apnea) (Chronic) Moderate, oral appliance (did not tolerate CPAP), Dr. 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 H90.A11 Sensorineural Hearing loss, bilateral-H90.3 Chronic serous otitis media, right ear (Chronic 02/21/17) Chronic pain of left knee (Chronic 02/24/16) Chronic rhinitis (Chronic 07/03/12) BPH w urinary obs/LUTS (Chronic 07/03/12) B12 deficiency (Chronic 05/26/15) Medical History Dilated aortic root Endocarditis Initial reason for AVR/MVR and recurrent prosthetic valve endocarditis Gastrointestinal bleed (07/13/15) Negative EGD [facility] 06/10/2015; neg colonoscopy 07/08/2015 [facility]; capsule endoscopy [facility] 08/19/15 AVMs of small bowel and cecum Repeat GI bleed 2015 and again 2017 s/p hemorrhoidectomy 04/2017 History of atrial fibrillation Lichen planus (07/16/11) Low back pain without sciatica (07/16/11) 01/04/16 CT LS spine: DJD, spinal stenosis L4-5, multi level foraminal stenosis; [facility] Neuro[facility] Mitral and aortic heart valve diseases, unspecified (07/16/11) S/p AVR/MVR mechanical ST JUDES 08/2004 FOR ENDOCARDITIS [facility] DR CHAVEZ; echo 04/24/16 [facility] EF 60% Seborrheic keratoses (02/02/21) Surgical History Colonoscopy - MAC (01/30/13) Hyperplastic polyp EGD - IV Sedation Hemorrhoidectomy (04/23/17) left total knee revision,poly exchange, patellar resurfacing (07/22/12) Dr. Ga [facility] Valve Replacement Aortic and mitrial Family History Mother Heart disease Hypertension Father Heart disease Maternal Uncle Heart disease Social History Smoking/Tobacco Use Status: Former Tobacco Use Tobacco: How many years used: 5 Smoking risk assessment performed?: Yes Alcohol Intake: current Alcohol Intake frequency: 0-2 drinks per day Drug use: Never Substance use type: does not use Adopted: No Caregiver/Support person: No Foster care: No Household members: spouse and children Housing: house Number of Children: 4 number of grandchildren: 5 Communication Needs: Hard of Hearing Education Level: master's degree 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 Pets and animals: Yes Pets and animals: cat(s) and dog(s) Sexually active: Yes Do you think of yourself as: straight/heterosexual Current gender identity: male What is your relationship status?: How often do you talk on the phone with friends or family?: once per week How often do you get together with friends or relatives?: once per week Do you belong to any clubs or organized social groups?: no Panel score (0-1 are the most socially isolated patients): 1 What type of physical activity do you participate in: bicycling, regular exercise, weight lifting and other Details: circuit training Duration: 15-30 minutes/day Frequency: 3-4 times per week Dayna/Denominational: Mu-Ism Special dayna needs: No Seatbelt use: always Helmet use: Yes Drive intox or ride w/intox oil transport driver: No Do you feel safe at home: Yes Do you feel safe in your relationship?: Yes Sign Out <THANH Berry - Last Filed: 08/31/23 20:00> Sign Out Data: Sign Out Comment: pending transfusion, teddy orthopedics consult, and transfer to [facility] for continued care Last updated by Paradise Kurtz PA at 08/30/23 16:03 Sign Out Comment: Pending [place] hospitalist consultation for transfer to [place]. Patient had orthopedic surgery to his right knee on Saturday restarted on Coumadin and Lovenox Saturday here with acute anemia possible GI bleed versus hemarthrosis. Receiving 1 unit PRBCs. Guaiac negative, pending CT abdomen pelvis and CT right lower extremity with contrast Negative CT chest for PE negative Doppler for DVT x-ray of knee shows large joint effusion Last updated by Bina Poole NP at 08/30/23 17:26 PAWSS <THANH Berry - Last Filed: 08/31/23 20:00> Have you Been Recently Intoxicated or Drunk Within the Last 30 days?: No Have you Ever Experienced Previous Episodes of Alcohol Withdrawal?: No Have you ever Experienced Withdrawal Seizures?: No Have you ever Experienced Delirium Tremens(DT)s?: No Have you ever undergone Alcohol Rehabilitation Treatment (i.e, inpt ot outpatient treatment programs)?: No Have you ever Experienced Blackouts?: No Have you ever Combined Alcohol with other Downers within the last 90 days?: No Have you ever Combined Alcohol with any other Substance of Abuse during the last 90 days?: No Positive Blood Alcohol level on Presentation? [PCS.BAL]: No Evidence of Increased Autonomic Activity (i.e. HR>120, tremor, sweating, agitation, nausea)?: No Result: 0 <Bina Poole NP - Last Filed: 09/02/23 09:21> Result: 0 <Katina Mcmanus NP - Last Filed: 08/30/23 22:00> Result: 0
--- NOTE | 2023-08-30 13:00 | DI.CT_ITS ---
Exam(s) CT CHEST PE CTA EXAM: CT CHEST PE CTA CLINICAL HISTORY: shortness of breath. TECHNIQUE: Imaging Protocol: Axial CT angiography was performed with multi-slice acquisition and mu lti-planar reconstructions as well as axial, coronal and sagittal MIP reconstructions. CONTRAST MATERIAL: Intravenous: Omnipaque 350 Contrast volume:100 ml COMPARISON: No exams were available for comparison FINDINGS: Pulmonary Arteries: No evidence of filling defect to suggest pulmonary emboli. Tracheobronchial tree: No mucous plugging. Mediastinum and Brandy: No dominant adenopathy or fluid collection. Pulmonary parenchyma: No consolidation or dominant measurable mass. Few scattered calcified granulo mas are noted. Pleura: No effusion or pneumothorax. Heart: The heart is mildly dilated. Mitral and aortic valve prostheses. Mild coronary artery calcif ications are seen. Aorta: Thoracic aorta non-dilated. No dissection. Upper abdomen: No acute findings. Bones: Sternal wires. Tubes, Catheters, and Lines: None Soft tissues: Unremarkable. IMPRESSION: No evidence of pulmonary embolism or other acute abnormality in the chest. RADIATION DOSE DELIVERED: 367.19mGy.cm Total DLP DATA REPOSITORY: All CT scans at this facility are submitted to the National Radiology Data Registry (NRDR) Dose Index Registry (DIR) with the [employer] (ACR). RADIATION OPTIMIZATION: All CT scans at this facility use at least one of these dose optimization te chniques: automated exposure control; mA and/or kV adjustment per patient size (includes targeted exa ms where dose is matched to clinical indication); or iterative reconstruction.
[2023-08-30 13:05] LABS: Abs Immature Grans 0.04 10^3/uL (0.0-0.06); Absolute Basophil Count 0.02 10^3/uL (0.0-0.2); Absolute Eosinophil Count 0.01 10^3/uL (0.0-0.7); Absolute Lymphocyte Count 0.61 10^3/uL (1.2-3.4); Absolute Monocyte Count 0.75 10^3/uL (0.1-0.8); Absolute Neutrophil Count 7.91 10^3/uL (1.2-6.7); Basophils % 0.2 %; Eosinophils % 0.1 %; HCT 27.2 % (40.0-50.0); Immature Grans % 0.4 %; Lymphocytes % 6.5 %; MCH 31.6 pg (27.0-33.0); MCHC 33.1 % (32.0-36.0); MCV 95 fL (80-95); MPV 9.3 fL (8.0-11.0); Neutrophils % 84.8 %; Platelet Count 313 10^3/uL (130-400); RBC 2.85 10^6/uL (4.36-5.78); RDW 13.7 % (11.8-14.1); WBC 9.34 10^3/uL (4.4-10.8)
[2023-08-30 13:06] LABS: ESR 22 mm/hr (0-20)
[2023-08-30 13:16] LABS: INR 2.1 (0.9-1.1); Prothrombin Time 20.2 sec (9.1-11.1)
[2023-08-30 13:22] LABS: ALT 53 U/L (16-63); AST 37 U/L (15-37); Albumin 3.5 g/dL (3.4-5.0); Alkaline Phosphatase 79 U/L (46-116); Anion Gap 10.9 mmol/L (3-11); BUN 23 mg/dL (7-18); Bilirubin, Total 0.8 mg/dL (0.2-1.0); C-Reactive Protein 5.56 mg/dL (<or=0.5); CO2 26.1 mmol/L (21.0-32.0); CREATININE 1.3 mg/dL (0.70-1.30); Calcium 8.8 mg/dL (8.5-10.1); Chloride 100 mmol/L (98-107); Estimated GFR 56.23 (mL/min/1.73m2); Glucose 157 mg/dL (74-106); Potassium 3.9 mmol/L (3.5-5.1); Sodium 137 mmol/L (136-145); Troponin I < 50 ng/L (< or =60)
[2023-08-30] MEDS: Omnipaque 350 MG/ML 100 ML BTL IJ ×2 (13:24→16:55)
[2023-08-30] MEDS: Normal Saline - Diluent 50 ML VIAL IJ ×2 (13:25→17:05)
--- NOTE | 2023-08-30 13:35 | DI.RAD_ITS ---
Exam(s) XR KNEE RT 3V AP,LAT,WALLACE EXAM: XR KNEE RT 3V AP,LAT,WALLACE CLINICAL HISTORY: effusion, knee surg mon, coumadin/lovenox. TECHNIQUE: 2D digital imaging was performed. Three views. COMPARISON: None FINDINGS: BONES: No acute fracture is present. No bony destructive lesion is seen. A total knee prosthesis is present which show satisfactory alignment. JOINTS: The knee is normally aligned. A large joint effusion is seen. SOFT TISSUE: Marked anterior soft tissue swelling. Residual postsurgical air in the soft tissues. V ascular calcifications. IMPRESSION: Status post placement of total knee prosthesis. Large joint effusion and anterior soft tissue swelli ng. DATA REPOSITORY: RADIATION DOSE DELIVERED:
[2023-08-30 13:51] LABS: NT-proBNP 2507 pg/mL (<300)
[2023-08-30 14:41] LABS: Abs Immature Grans 0.02 10^3/uL (0.0-0.06); Absolute Basophil Count 0.01 10^3/uL (0.0-0.2); Absolute Eosinophil Count 0.01 10^3/uL (0.0-0.7); Absolute Lymphocyte Count 0.55 10^3/uL (1.2-3.4); Absolute Monocyte Count 0.65 10^3/uL (0.1-0.8); Absolute Neutrophil Count 5.15 10^3/uL (1.2-6.7); Basophils % 0.2 %; Eosinophils % 0.2 %; Immature Grans % 0.3 %; Lymphocytes % 8.6 %; MCH 31.7 pg (27.0-33.0); MCHC 33.2 % (32.0-36.0); MCV 96 fL (80-95); MPV 9.7 fL (8.0-11.0); Monocytes % 10.2 %; Neutrophils % 80.5 %; Platelet Count 226 10^3/uL (130-400); RBC 2.02 10^6/uL (4.36-5.78); RDW 13.7 % (11.8-14.1); RDW-SD 48.2 fL; WBC 6.39 10^3/uL (4.4-10.8)
[2023-08-30 14:44] LABS: HCT 19.3 % (40.0-50.0); HGB 6.4 g/dL (13.5-17.5)
[2023-08-30 15:06] LABS: Diff Comment RBC Morph Reviewed; RBC Morphology Normal
--- NOTE | 2023-08-30 16:15 | DI.CT_ITS ---
Exam(s) CT ABDOMEN PELVIS CTA EXAM: CT ABDOMEN PELVIS CTA CLINICAL HISTORY: . TECHNIQUE: Imaging Protocol: Axial computed tomography images with coronal and sagittal reformatted images were created and reviewed CONTRAST MATERIAL: Intravenous: Omnipaque-350 100cc Oral: None COMPARISON: CT CT LOWER EXTREMITY RT W from 08/30/2023 FINDINGS: VISUALIZED LUNG BASES: No nodules nor pleural effusions evident. ABDOMEN: ABDOMINAL AORTA: No evidence of abdominal aortic aneurysm nor significant atherosclerotic narrowing o f the aorta and main branches. No significant narrowing at the aortic bifurcation and aortoiliac seg ments and common femoral arteries are patent. Also no evidence of dissection. There are no ischemic appearing bowel loops. Also no active arterial extravasation demonstrated on t his arterial phase study. No evidence of ascites, intra-abdominal nor retroperitoneal hematoma/hemor rhage. LIVER: There is a 1 cm benign cyst in the left hepatic lobe. No dilated intrahepatic ducts. GALLBLADDER/BILIARY: No obvious gallbladder pathology. CBD is not dilated. PANCREAS: No evidence of pancreatic mass nor dilatation of the pancreatic duct. SPLEEN: Spleen is not enlarged. No obvious intrasplenic lesions. ADRENALS: There are no significant adrenal masses. KIDNEYS:No laceration. No solid renal masses. No calculi nor hydronephrosis.. ABDOMINAL AORTA: Unremarkable, as above. LYMPH NODES:There is no retroperitoneal nor paraaortic adenopathy. ABDOMINAL WALL: No evidence of significant anterior abdominal wall nor inguinal hernia. GI: There is no evidence of bowel obstruction, free air, nor abscess. PELVIS: GI: No evidence of appendicitis.No evidence of sigmoid diverticulitis. LYMPH NODES: There is no intrapelvic nor inguinal adenopathy. REPRODUCTIVE: Enlarged prostate. Also possible TURP defect in the prostatic urethra. URINARY BLADDER: No calculi nor obvious masses evident OSSEOUS: No fractures. No significant osseous lesions. IMPRESSION: 1. Intact abdominal aorta and aortoiliac segments. No evidence of hemorrhage, as per request. 2. No acute findings in the abdomen pelvis. 3. 4. RADIATION DOSE DELIVERED: 1,898.04mGy.cm Total DLP DATA REPOSITORY: All CT scans at this facility are submitted to the National Radiology Data Registry (NRDR) Dose Index Registry (DIR) with the [employer] (ACR). RADIATION OPTIMIZATION: All CT scans at this facility use at least one of these dose optimization te chniques: automated exposure control; mA and/or kV adjustment per patient size (includes targeted exa ms where dose is matched to clinical indication); or iterative reconstruction.
--- NOTE | 2023-08-30 16:59 | DI.CT_ITS ---
Exam(s) CT LOWER EXTREMITY RT W EXAM: CT LOWER EXTREMITY RT W CLINICAL HISTORY: Swelling, recent surgery, anemia. TECHNIQUE: Imaging Protocol: Axial computed tomography images with coronal and sagittal reformatted images were created and reviewed. CONTRAST MATERIAL: Intravenous: Omnipaque 350 Contrast volume:100 mL contrast route:IV - COMPARISON: CT CT CHEST PE CTA from 08/30/2023 FINDINGS: OSSEOUS: There is a right knee prosthesis. There is a E moderate size joint effusion of mixed attenu ation and containing some air. Some air-gas is also seen within the medullary cavity of the distal f emur. No fracture evident. No evidence of osteomyelitis. SOFT TISSUES: There is soft tissue swelling around the knee but no focal abnormal extra-articular flu id collections. VASCULATURE: Streak artifact from the prosthesis prevents evaluation for popliteal aneurysm. However , the 3 runoff vessels in the calf are heavily calcified indicating significant atherosclerotic invol vement. IMPRESSION: 1. Moderate-large joint effusion which is probably hemarthrosis. There are foci of gas seen in the j oint space and in the soft tissues around the knee. Correlation with time since knee arthroplasty goetz rgery is recommended. Cannot exclude possibility of septic arthropathy. 2. No fractures and no evidence of osteomyelitis. 3. No extra-articular abscess evident. RADIATION DOSE DELIVERED: Total DLP DATA REPOSITORY: All CT scans at this facility are submitted to the National Radiology Data Registry (NRDR) Dose Index Registry (DIR) with the [employer] (ACR). RADIATION OPTIMIZATION: All CT scans at this facility use at least one of these dose optimization te chniques: automated exposure control; mA and/or kV adjustment per patient size (includes targeted exa ms where dose is matched to clinical indication); or iterative reconstruction.
[2023-08-30 18:26] LABS: HCT 21.1 % (40.0-50.0)
[2023-08-30 18:28] LABS: HGB 6.9 g/dL (13.5-17.5)
[2023-08-30] MEDS: Furosemide 20 MG/2 ML VIAL 10 MG IVP (19:17)
[2023-08-30] MEDS: ACETAMINOPHEN 1,000 MG/100 ML BTL 400 MG IVPB (19:17)
--- NOTE | 2023-08-30 19:23 | DI.VRAD_ITS ---
PROCEDURE INFORMATION: Exam: CT Right Lower Extremity With Contrast, Knee Exam date and time: 08/30/2023 4:51 PM Age: 77 years old Clinical indication: Other: Swelling, recent surgery, anemia TECHNIQUE: Imaging protocol: CT of the right lower extremity with intravenous contrast was performed. Exam focused on the knee. COMPARISON: CR XR KNEE RT 3V AP,LAT,WALLACE 08/30/2023 1:26 PM FINDINGS: Bones/joints: A moderate joint effusion is present, with complex mixed attenuation fluid. Numerous foci of air are present in the suprapatellar recess. Right total knee arthroplasty hardware is observed, with moderate streak artifact. There are no fractures observed. There are no bony erosions appreciated. Foci of gas are present in the medullary space of the distal femur. Soft tissues: Soft tissue swelling is present surrounding the knee. Foci of gas are present lateral to the knee and the distal femur. There are no soft tissue fluid collections appreciated. Vasculature: Severe vascular calcifications are noted in the infrapopliteal arteries. IMPRESSION: 1. Moderate hemarthrosis suspected. Septic arthropathy is not excluded. 2. Foci of gas are observed in the joint space and in the soft tissues lateral to the knee, and may be postoperative or related to infection. 3. No fracture observed. 4. No evidence of osteomyelitis. Dictated and Authenticated by: Prasad Green MD. Ordering:JOSE ALEJANDRO Curran MD
[2023-08-30] MEDS: Enoxaparin 80 MG/0.8 ML SYR SC (20:43)
[2023-08-30 21:36] LABS: HCT 29.9 % (40.0-50.0); HGB 9.9 g/dL (13.5-17.5)
== END 2023-08-30 21:55 | disposition home or self-care (01) ==
PROVIDERS: Physician Assistant; Emergency Provider Nurse Practitioner Acute Care; PCP Nurse Practitioner Family
DX: D62 Acute posthemorrhagic anemia (principal); M25.461 Effusion, right knee; Z96.651 Presence of right artificial knee joint
CPT/HCPCS: 36415; 36430; 71275; 73562; 80053; 85652; 86850; 86900; 86901; 86920; 93005; 96365; 96372; 96375; 99285; 73701; 74174; 83880; 84484; 85014; 85018; 85025; 85610; 86140; 93010; 93971; 99283; J0131; J1650; J1941; J3490; P9016

== ENCOUNTER 2023-09-03 10:37 | Outpatient (CLI) | payer BC, SELFPAY ==
[2023-09-03 11:00] LABS: Abs Immature Grans 0.06 10^3/uL (0.0-0.06); Absolute Basophil Count 0.03 10^3/uL (0.0-0.2); Absolute Eosinophil Count 0.04 10^3/uL (0.0-0.7); Absolute Lymphocyte Count 0.75 10^3/uL (1.2-3.4); Absolute Monocyte Count 0.86 10^3/uL (0.1-0.8); Absolute Neutrophil Count 8.28 10^3/uL (1.2-6.7); Basophils % 0.3 %; Eosinophils % 0.4 %; HCT 35.9 % (40.0-50.0); HGB 11.9 g/dL (13.5-17.5); Immature Grans % 0.6 %; Lymphocytes % 7.5 %; MCH 30.2 pg (27.0-33.0); MCHC 33.1 % (32.0-36.0); MCV 91 fL (80-95); MPV 8.7 fL (8.0-11.0); Monocytes % 8.6 %; Neutrophils % 82.6 %; Platelet Count 387 10^3/uL (130-400); RBC 3.94 10^6/uL (4.36-5.78); RDW 16.8 % (11.8-14.1); RDW-SD 52.9 fL; WBC 10.02 10^3/uL (4.4-10.8)
[2023-09-03 11:14] LABS: INR 1.3 (0.9-1.1); Prothrombin Time 12.6 sec (9.1-11.1)
[2023-09-03 12:10] LABS: Iron 51 ug/dL (65-175); Total Iron Binding Capacity 268 ug/dL (250-450); Transferrin Sat 19 % (20-55)
[2023-09-03 12:20] LABS: ALT 38 U/L (16-63); AST 33 U/L (15-37); Alkaline Phosphatase 80 U/L (46-116); Anion Gap 6.5 mmol/L (3-11); BUN 20 mg/dL (7-18); Bilirubin, Total 1.5 mg/dL (0.2-1.0); CO2 26.5 mmol/L (21.0-32.0); CREATININE 1.2 mg/dL (0.70-1.30); Calcium 9.1 mg/dL (8.5-10.1); Calculated LDL 104 mg/dL (<100); Chloride 101 mmol/L (98-107); Cholesterol 198 mg/dL (<200); Ferritin 355 ng/mL (26-388); Glucose 194 mg/dL (74-106); HDL Cholesterol 73 mg/dL (40-60); Potassium 3.5 mmol/L (3.5-5.1); Sodium 134 mmol/L (136-145); Triglyceride 106 mg/dL (<150); Vitamin B12 1605 pg/mL (193-986)
[2023-09-03 12:32] LABS: Albumin 3.5 g/dL (3.4-5.0); Total Protein 7.3 g/dL (6.4-8.2)
== END 2023-09-03 10:38 | disposition home or self-care (01) ==
LOC: LBO 10:38
PROVIDERS: PCP Nurse Practitioner Family; Visit Provider Nurse Practitioner Acute Care
DX: Z13.1 Encounter for screening for diabetes mellitus (principal); E78.5 Hyperlipidemia, unspecified; Z51.81 Encounter for therapeutic drug level monitoring; E53.8 Deficiency of other specified B group vitamins
CPT/HCPCS: 36415; 80053; 80061; 82607; 82728; 83540; 83550; 85025; 85610

== ENCOUNTER 2023-11-14 01:49 | Outpatient (CLI) | payer BC, SELFPAY ==
[2023-11-14 09:58] LABS: HCT 39.7 % (40.0-50.0); HGB 13.3 g/dL (13.5-17.5); MCH 31.4 pg (27.0-33.0); MCHC 33.5 % (32.0-36.0); MCV 94 fL (80-95); Platelet Count 303 10^3/uL (130-400); RBC 4.24 10^6/uL (4.36-5.78); RDW 13.2 % (11.8-14.1); RDW-SD 44.9 fL; WBC 4.49 10^3/uL (4.4-10.8)
== END 2023-11-14 01:50 | disposition home or self-care (01) ==
LOC: LBO 01:49
PROVIDERS: Visit Provider Family Medicine
DX: D64.9 Anemia, unspecified (principal)
CPT/HCPCS: 36415; 85027

== ENCOUNTER 2024-02-06 02:57 | Outpatient (CLI) | payer BC, SELFPAY ==
[2024-02-06 07:51] LABS: Anion Gap 7.5 mmol/L (3-11); BUN 17 mg/dL (7-18); CO2 29.5 mmol/L (21.0-32.0); Chloride 105 mmol/L (98-107); Estimated GFR 76.56 (mL/min/1.73m2); Glucose 98 mg/dL (74-106); Potassium 4.7 mmol/L (3.5-5.1); Sodium 142 mmol/L (136-145)
== END 2024-02-06 02:58 | disposition home or self-care (01) ==
LOC: LBO 02:57
PROVIDERS: PCP Family Medicine; Referring Provider Family Medicine; Visit Provider Family Medicine
DX: R73.9 Hyperglycemia, unspecified (principal)
CPT/HCPCS: 36415; 80048

== ENCOUNTER 2025-01-18 03:39 | Outpatient (CLI) | payer BC, SELFPAY ==
[2025-01-18 07:41] LABS: Kit/Specimen SENT
== END 2025-01-18 03:40 | disposition home or self-care (01) ==
LOC: LBO 03:39
PROVIDERS: PCP Family Medicine
DX: Z01.812 Encounter for preprocedural laboratory examination (principal)
CPT/HCPCS: 36415

== ENCOUNTER 2025-02-04 03:31 | Outpatient (CLI) | payer BC, SELFPAY ==
[2025-02-04 08:44] LABS: HCT 42.3 % (40.0-50.0); HGB 14.0 g/dL (13.5-17.5); MCH 31.2 pg (27.0-33.0); MCHC 33.1 % (32.0-36.0); MCV 94 fL (80-95); MPV 9.8 fL (8.0-11.0); Platelet Count 251 10^3/uL (130-400); RBC 4.49 10^6/uL (4.36-5.78); RDW 14.3 % (11.8-14.1); RDW-SD 49.5 fL; WBC 5.29 10^3/uL (4.4-10.8)
== END 2025-02-04 03:32 | disposition home or self-care (01) ==
LOC: LBO 03:31
PROVIDERS: PCP Family Medicine; Referring Provider Family Medicine; Visit Provider Family Medicine
DX: D50.0 Iron deficiency anemia secondary to blood loss (chronic) (principal); N52.9 Male erectile dysfunction, unspecified
CPT/HCPCS: 36415; 84403; 85027

== ENCOUNTER → 2025-03-10 01:16 | Outpatient (CLI) | payer BC, SELFPAY ==
--- NOTE | 2025-03-10 08:30 | DI.US_ITS ---
APPROVED REPORT EXAM: Comprehensive 2D, Doppler, and color-flow Echocardiogram Patient Location: Out-Patient Dump Motor Operator: Lisa Bain RDCS (AE) Indications: Dyspnea, Mechanical aortic valve, Mechanical mitral valve Other Information Study Quality: Adequate Conclusion Normal left ventricular wall thickness and chamber size. Ejection fraction is 60%. Wall motion is normal Normal right ventricular size and function Both atria are normal in size Appropriately functioning aortic and mitral mechanical prostheses Mildly dilated aortic root and ascending aorta Normal estimated right ventricular systolic pressure 34 mmHg Wall motion Left Ventricle The left ventricle is normal size. The left ventricular systolic function is normal. The left ventricular ejection fraction is within the normal range. There is normal left ventricular wall thickness. There is normal LV segmental wall motion. There is no ventricular septal defect visualized. LVEF is 60%. Right Ventricle The right ventricle is normal size. The right ventricular systolic function is normal. Atria The left atrium size is normal. The right atrium size is normal. The interatrial septum is intact with no evidence for an atrial septal defect. Aortic Valve Trace aortic regurgitation. Mechanical aortic valve is present. Mitral Valve Trace mitral regurgitation. Mechanical prosthetic mitral valve is present. Tricuspid Valve The tricuspid valve is normal in structure. There is no tricuspid valve stenosis. Mild tricuspid regurgitation. The RVSP is 34.0 mmHg. Pulmonic Valve The pulmonary valve is normal in structure. There is no pulmonic valvular stenosis. Mild pulmonic regurgitation. Great Vessels Aortic root is moderately dilated. The ascending aorta is mildly dilated. Aortic arch is not well visualized. IVC is normal in size and collapses >50% with inspiration. Pericardium There is no pericardial effusion. 2D Dimensions IVSD d PLAX 1.02 cm M: 0.6-1.2 Ao Root d 4.20 cm M: 3.1 - 3.7 LVPW d PLAX 1.04 cm M: 0.6 - 1.2 Ao Asc Diam d 3.91 cm M: 2.6 - 3.4 LVID d PLAX 5.51 cm M: 4.2 - 5.8 LVDs 3.80 cm M: 2.5 - 4.0 LV EF Teichholz 58.7 % FS 31.43 % LV EDV (Teich) 148.3 mL LV ESV (Teich) 61.2 mL M-Mode TAPSE 2.94 cm (M/F) >1.7 Auto EF LV EDV A4C 218.4 mL LV EDV A2C 136.8 mL LV EDV BP 173.4 mL LV ESV A4C 90.4 mL LV ESV A2C 56.5 mL LV ESV BP 71.1 mL LVEF(%) A4C 58.6 % LVEF(%) A2C 58.7 % LVEF(%) BP 59.0 % LV SV A4C 128.0 ml LV SV A2C 80.3 ml LV SV BP 102.2 ml LV CO A4C 7.0 L/min LV CO A2C 4.4 L/min LV CO BP 5.7 L/min HR A4C 54.47 BPM HR A2C 54.38 BPM LV EDV Index (BP) LV Diastology MV E Vmax 1.39 (0.4-1.3 m/s) MV A Vmax 0.95 (0.4-1.3 m/s) E/A Ratio 1.5 Aortic Valve AoV Vmax 2.87 m/s LVOT Vmax 1.75 m/s AoV Peak Grad 33.0 mmHg LVOT Peak Grad 12.2 mmHg AoV Area (Vmax) 1.78 cm2 LVOT VTI 0.441 m AoV VTI 0.731 m LVOT Mean Grad 7.7 mmHg AoV Mean Abundio. 1.85 m/s LVOT SV 128.73 mL AoV Mean Grad 16.2 mmHg LVOT Diam s 1.90 cm AoV Area (VTI) 1.76 cm2 AV Regurg Peak Gr. 33.02 mmHg Velocity Ratio 0.61 Mitral Valve MV DT 255 (160-240 msec) MV Vmax TIPS 1.43 m/s MV Mean Grad 2.5 (<2mmHg) MV PHT 103 msec MV Area PHT 2.14 cm2 MV VTI 0.469 m Pulmonary Valve PV Vmax 0.90 (0.5-1.5 m/s) RVOT Vmax 0.54 m/s PV Peak Grad 3.2 mmHg RVOT Peak Gr. 1.2 mmHg PV Mean Abundio 0.55 m/s RVOT VTI 0.151 m PV Mean Grad 1.4 mmHg RVOT Mean Gr. 0.7 mmHg Tricuspid Valve RA Pressure 3.00 mmHg TR Vmax 2.78 m/s TV S' 0.16 m/s TR Peak Grad 30.9 mmHg RVSP (TR) 34.0 mmHg
== END ==
LOC: DI 01:16
PROVIDERS: PCP Family Medicine; Visit Provider Family Medicine
DX: Z95.2 Presence of prosthetic heart valve (principal); R06.09 Other forms of dyspnea; I77.810 Thoracic aortic ectasia
CPT/HCPCS: 93306